=== PATIENT | female | born 1980 | race Caucasian/White ===

== ENCOUNTER 2017-01-21 22:18 | Emergency (ER) | payer MEDICAID ==
[~2017-01-21] VITALS: Ht 165.1 cm; Wt 83.9 kg
[~2017-01-21 22:18] MED LIST: ACHD5005 PO; AZIT250T PO; BACL10TA PO; CYCL10TA9; CYCL10TA9 PO; DIAZ10TA; HYDR-3720 PO; HYDR1TAB PO; IBP800T; IBP800T PO; IBUP-1780 PO; IBUP-30 PO; KETO-22 PO; METH4TAB PO; NAPR-243 PO; NITR-65 PO; OXYC-12 PO; PHEN37.555 PO; PRD10T PO; PRD20T PO; PROM25TA14 PO; SENN-84 PO; TRAM-42 PO; TRAM50TA2 PO; TRM50T PO
[2017-01-21 23:00] LABS: BILIRUBIN,URINE NEGATIVE (NEGATIVE); KETONES,URINE NEGATIVE (NEGATIVE); LEUKOCYTE ESTERASE ,URINE NEGATIVE (NEGATIVE); NITRITE,URINE NEGATIVE (NEGATIVE); PH,URINE 7 (5-9); PROTEIN,URINE NEGATIVE (NEGATIVE); UROBILINOGEN,URINE NORMAL (NORMAL)
--- NOTE | 2017-01-21 23:14 | ED Back Pain ---
General Chief Complaint: General Problems/Pain Stated Complaint: NECK PAIN BACK PAIN Nursing Triage Note: Pt. advises she has been experiencing back and neck pain since 729 today that has become progressively worse. She advises that she has not taken any medication for the pain as the "over the counter stuff" doesn't help her pain. Nursing Sepsis Screen: No Definite Risk Source of Information: Patient Exam Limitations: No Limitations History of Present Illness Time Seen by Provider: 23:14 Location: Coccyx, C-Spine, Lumbar Spine, Paraspinous Muscles, T-Spine Timing/Duration: 12-24 Hours (729 today) Pain/Injury Location: Back, Neck Radiation: Other (denies radiation) Method of Injury: Unknown Modifying Factors: Improves With Immobilization, Worse With Movement Associated Symptoms: muscle spasms, No fever, No weakness, No numbness in legs/ feet, No tingling in legs/feet, No sensory/motor loss, lower back pain, No loss of bladder control, No loss of bowel control Allergies and Home Medications Allergies Coded Allergies: Penicillins (Verified Allergy, Unknown, 03/01/07) hydromorphone HCl (Unverified Allergy, Unknown, 02/16/16) ondansetron HCl (Unverified Allergy, Unknown, 02/16/16) fentanyl (Unverified Adverse Reaction, Severe, anaphylaxis, 04/26/16) ibuprofen (Verified Adverse Reaction, Unknown, 06/06/16) can't take due to stomach problems Home Medications Cyclobenzaprine HCl 10 Mg Tablet, 10 MG PO Q8H, #15 Prescribed by: DIMITRIS RASHEED on 06/06/161944 Cyclobenzaprine HCl 10 Mg Tablet, 10 MG PO Q8H PRN for SPASMS, #14 Ref 0 Prescribed by: BAN THOMPSON on 01/21/172345 Nitrofurantoin Monohyd/M-Cryst 100 Mg Capsule, 100 MG PO BID, #20 Prescribed by: DIMITRIS RASHEED on 06/06/161944 Prednisone 10 Mg Tab, 40 MG PO DAILY, #12 Prescribed by: DIMITRIS RASHEED on 06/06/161944 Prednisone 20 Mg Tab, 40 MG PO DAILY, #10 Ref 0 Prescribed by: BAN THOMPSON on 01/21/172345 Tramadol HCl 50 Mg Tablet, 50 MG PO Q4H, #20 Prescribed by: DIMITRIS RASHEED on 06/06/161944 Tramadol HCl/Acetaminophen 1 Each Tablet, 1 EACH PO Q4H PRN for pain, #20 Ref 0 Prescribed by: BAN THOMPSON on 01/21/17 2346 Constitutional: No chills, No fever, No malaise Respiratory: no symptoms reported Cardiovascular: no symptoms reported Gastrointestinal: No abdominal pain, No diarrhea, No nausea, No vomiting Genitourinary: No decreased output, No dysuria, No frequency, No hematuria, No pain Musculoskeletal: back pain, No joint pain, muscle pain, muscle stiffness, neck pain Skin: no symptoms reported Psychiatric/Neurological: Denies Headache, Denies Numbness, Denies Paresthesia , Denies Tingling, Denies Weakness All Other Systems Reviewed Negative Unless Noted: Yes (Negative excepted noted.) Past Djclnrt-Berfnr-Vexnhm Hx Patient Social History Alcohol Use: Denies Use Recreational Drug Use: No Type Used: Cigarettes Recent Foreign Travel: No Contact w/Someone Who Travel: No Recent Infectious Disease Expo: No Recent Hopitalizations: No Seasonal Allergies Seasonal Allergies: No Surgeries HX Surgeries: Yes (BREAST , URETHRAL DILATION, RENAL BIOPSY; EGD/COLONOSCOPY- COLON POLYPECTOMY) Surgeries: Bladder Surgery, Breast, Gallbladder, Tubal Ligation Respiratory Hx Respiratory Disorders: No Cardiovascular Hx Cardiac Disorders: No Neurological Hx Neurological Disorders: No Reproductive System Hx 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 Genitourinary Hx Genitourinary Disorders: Yes (DIALATED URETHRA; RENAL STONES NOTED ON CT) Genitourinary Disorders: Kidney Stones Gastrointestinal Hx Gastrointestinal Disorders: Yes (EGD/COLONOSCOPY) Gastrointestinal Disorders: Polyps Musculoskeletal Hx Musculoskeletal Disorders: Yes (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) Musculoskeletal Disorders: Fibromyalgia, Chronic Back Pain Endocrine Hx Endocrine Disorders: No HEENT HX ENT Disorders: No Cancer Hx Cancer: No Psychosocial Hx Psychiatric Problems: No Integumentary HX Skin/Integumentary Disorder: No Blood Transfusions Hx Blood Disorders: No Reviewed Nursing Assessment Reviewed/Agree w Nursing PMH: Yes Family Medical History Significant Family History: No Pertinent Family Hx Physical Exam Vital Signs Vital Sign - Last 12Hours 01/21/17 22:35 Temp 98.6 Pulse 70 Resp 14 B/P (MAP) 139/79 Pulse Ox 98 O2 Delivery Room Air Capillary Refill : Less Than 3 Seconds Progress/Results/Core Measures Results/Orders Lab Results Laboratory Tests Test 01/21/17 22:33 Range/Units Urine Color YELLOW Urine Clarity CLEAR Urine pH 7 5-9 Urine Specific [place] 1.010 L 1.016-1.022 Urine Protein NEGATIVE NEGATIVE Urine Glucose (UA) NEGATIVE NEGATIVE Urine Ketones NEGATIVE NEGATIVE Urine Nitrite NEGATIVE NEGATIVE Urine Bilirubin NEGATIVE NEGATIVE Urine Urobilinogen NORMAL NORMAL MG/DL Urine Leukocyte Esterase NEGATIVE NEGATIVE Urine RBC (Auto) NEGATIVE NEGATIVE Urine RBC NONE /HPF Urine WBC NONE /HPF Urine Squamous Epithelial Cells 5-10 /HPF Urine Crystals NONE /LPF Urine Bacteria TRACE /HPF Urine Casts NONE /LPF Urine Mucus NEGATIVE /LPF Urine Culture Indicated NO My Orders Orders - BAN THOMPSON Orphenadrine Injection (Norflex Injectio (01/21/17 23:38) Dexamethasone Pf Injection (Decadron Pf (01/21/17 23:38) Promethazine Tablet (Phenergan Tablet) (01/21/17 23:45) Ketorolac Injection (Toradol Injection) (01/21/17 23:38) Vital Signs/I&O Vital Sign - Last 12Hours 01/21/17 01/22/17 22:35 00:15 Temp 98.6 Pulse 70 68 Resp 14 14 B/P (MAP) 139/79 Pulse Ox 98 98 O2 Delivery Room Air Blood Pressure Mean: 99 Departure Communication Progress Notes Patient seen and evaluated. Patient reports improvement in symptoms with medications given in the emergency department. Discharge to home. Patient ambulated from the emergency department without difficulty. Impression Impression: Primary Impression: acute exacerbation of chronic back pain Additional Impression: acute exacerbation of chronic neck pain Disposition: 01 HOME, SELF-CARE Condition: Improved Departure-Patient Inst. Decision time for Depature: 23:44 Referrals: KENTRELL MARTINEZ BRIAN J MD NO,LOCAL PHYSICIAN (PCP) Primary Care Physician Patient Instructions: Chronic Pain (DC) Add. Discharge Instructions: All discharge instructions reviewed with patient and/or family. Voiced understanding. Medications as instructed. Tylenol 650 mg by mouth every 6 hours as needed for pain. Ice pack or heating pads as needed for pain. Lifting , pushing, pulling, twisting, bending, climbing 7 days. Follow-up with Dr. Bustamante or Dr. Martinez for recheck and possible need of MRI as an outpatient. Return to the emergency department for worsened pain, numbness, weakness, bowel incontinence, bladder incontinence, or any other concerns. Scripts Cyclobenzaprine HCl (Cyclobenzaprine HCl) 10 Mg Tablet 10 MG PO Q8H Y for SPASMS, #14 TAB 0 Refills Prov: BAN THOMPSON 01/21/17 Tramadol HCl/Acetaminophen (Tramadol-Acetaminophn 37.5-325) 1 Each Tablet 1 EACH PO Q4H Y for pain, #20 TAB 0 Refills Prov: BAN THOMPSON 01/21/17 Prednisone (Prednisone) 20 Mg Tab 40 MG PO DAILY, #10 TAB 0 Refills Prov: BAN THOMPSON 01/21/17 Work/School Note: Local Medical Staff Listing BAN THOMPSON January 21, 2017 23:14
[2017-01-21] MEDS ORDERED: DEXAMETHASONE PF 10 MG/ML (DECADRON) VIAL IM STA (23:38)
[2017-01-21] MEDS ORDERED: ORPHENADRINE 60 MG/2 ML (NORFLEX) AMP IM STA (23:38)
[2017-01-21] MEDS ORDERED: KETOROLAC 60 MG/2 ML VIAL IM STA (23:38)
[2017-01-21] MEDS ORDERED: PROMETHAZINE 25 MG (PHENERGAN) TAB PO ONE (23:45)
[2017-01-21] MEDS ORDERED: CYCL10TA9 PO (23:46)
[2017-01-21] MEDS ORDERED: PRD20T PO (23:46)
[2017-01-21] MEDS ORDERED: TRAM1TAB7 PO (23:46)
[2017-01-22 00:15] VITALS: BP 128/85
== END 2017-01-22 00:10 | disposition home or self-care (01) ==
LOC: EDUNIT# 22:18 → ER 22:21
DX: M54.5 Low back pain (principal); M54.2 Cervicalgia; G89.29 Other chronic pain
CPT/HCPCS: 81000; 96372; 99282

== ENCOUNTER 2017-01-23 12:45 | Emergency (ER) | payer MEDICAID ==
[~2017-01-23] VITALS: Ht 162.6 cm; Wt 95.3 kg
[~2017-01-23 12:45] MED LIST changes: +TRAM1TAB7 PO
--- NOTE | 2017-01-23 14:52 | Diagnostic Imaging Report ---
INDICATION: Extreme pain to the back of the neck since last night when trying to eat or drink . No recent trauma. Chronic history of back and neck pain Comparison study: MRI of the cervical spine from 2014 and plain films from 2013. FINDINGS: AP odontoid and lateral views of the cervical spine demonstrates increasing disc space narrowing and osteophytes C6-7. No fracture or subluxation is present. IMPRESSION: Increasing degenerative disc changes at C6-7. Dictated by: Dictated on workstation # [id number]
--- NOTE | 2017-01-23 15:04 | ED Neck-Back Pain/Injury ---
General Chief Complaint: Head/Cervical Problems Stated Complaint: NECK PAIN Nursing Triage Note: AMB TO REPORTS WOKE UP SUNDAY WITH NECK PAIN NO INJURY WAS SEEN IN ED ON SUNDAY RX FOR PAIN,MUSCLE REXLANT DID NOT GET THEM FILLED TO YESTERDAY AFTERNOON. MEDS NOT HELPING. Nursing Sepsis Screen: No Definite Risk History of Present Illness Time Seen by Provider: 14:00 Initial Comments Evaluation for continued, and worsening cervical spine pain. The patient most notably states that she is losing motion in her cervical spine since evaluation 2 days ago. She took the cyclobenzaprine, culture sent, and the prednisone at 0530, today. She is declining request for additional pain medicine at this time , she would like to have x-rays of the cervical spine. Location: C-Spine Timing/Duration: 2-3 Days Severity: Severe Pain/Injury Location: Neck Method of Injury: Unknown Modifying Factors: Improves With Immobilization, Improves With Rest Associated Symptoms: muscle spasms, No weakness, No sensory/motor loss, No lower back pain, No loss of bladder control, No loss of bowel control Allergies and Home Medications Allergies Coded Allergies: Penicillins (Verified Allergy, Unknown, 03/01/07) hydromorphone HCl (Unverified Allergy, Unknown, 02/16/16) ondansetron HCl (Unverified Allergy, Unknown, 02/16/16) fentanyl (Unverified Adverse Reaction, Severe, anaphylaxis, 04/26/16) ibuprofen (Verified Adverse Reaction, Unknown, 06/06/16) can't take due to stomach problems Home Medications Cyclobenzaprine HCl 10 Mg Tablet, 10 MG PO Q8H, #15 Prescribed by: DIMITRIS RASHEED on 06/06/161944 Cyclobenzaprine HCl 10 Mg Tablet, 10 MG PO Q8H PRN for SPASMS, #14 Ref 0 Prescribed by: BAN THOMPSON on 01/21/17 234 Nitrofurantoin Monohyd/M-Cryst 100 Mg Capsule, 100 MG PO BID, #20 Prescribed by: DIMITRIS RASHEED on 06/06/161944 Prednisone 10 Mg Tab, 40 MG PO DAILY, #12 Prescribed by: DIMITRIS RASHEED on 06/06/161944 Prednisone 20 Mg Tab, 40 MG PO DAILY, #10 Ref 0 Prescribed by: BAN THOMPSON on 01/21/172345 Tramadol HCl 50 Mg Tablet, 50 MG PO Q4H, #20 Prescribed by: DIMITRIS RASHEED on 06/06/16 194 Tramadol HCl/Acetaminophen 1 Each Tablet, 1 EACH PO Q4H PRN for pain, #20 Ref 0 Prescribed by: BAN THOMPSON on 01/21/17 2346 Constitutional: no symptoms reported, see HPI EENTM: no symptoms reported, see HPI Respiratory: no symptoms reported, see HPI Cardiovascular: no symptoms reported, see HPI Gastrointestinal: no symptoms reported, see HPI Genitourinary: no symptoms reported, see HPI Musculoskeletal: see HPI, back pain, neck pain Skin: no symptoms reported, see HPI Psychiatric/Neurological: No Symptoms Reported, See HPI All Other Systems Reviewed Negative Unless Noted: Yes Past Yqvoxck-Uufvsk-Aojxpp Hx Patient Social History Alcohol Use: Occasionally Uses Recreational Drug Use: No Smoking Status: Current Everyday Smoker Type Used: Cigarettes Recent Foreign Travel: No Contact w/Someone Who Travel: No Recent Infectious Disease Expo: No Recent Hopitalizations: No Seasonal Allergies Seasonal Allergies: No Surgeries HX Surgeries: Yes (BREAST , URETHRAL DILATION, RENAL BIOPSY; EGD/COLONOSCOPY- COLON POLYPECTOMY) Surgeries: Bladder Surgery, Breast, Gallbladder, Tubal Ligation Respiratory Hx Respiratory Disorders: No Cardiovascular Hx Cardiac Disorders: No Neurological Hx Neurological Disorders: No Reproductive System Hx Reproductive Disorders: 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 Genitourinary Hx Genitourinary Disorders: Yes (DIALATED URETHRA; RENAL STONES NOTED ON CT) Genitourinary Disorders: Kidney Stones Gastrointestinal Hx Gastrointestinal Disorders: Yes (EGD/COLONOSCOPY) Gastrointestinal Disorders: Polyps Musculoskeletal Hx Musculoskeletal Disorders: Yes (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) Musculoskeletal Disorders: Fibromyalgia, Chronic Back Pain Endocrine Hx Endocrine Disorders: No HEENT HX ENT Disorders: No Cancer Hx Cancer: No Psychosocial Hx Psychiatric Problems: No Integumentary HX Skin/Integumentary Disorder: No Blood Transfusions Hx Blood Disorders: No Reviewed Nursing Assessment Reviewed/Agree w Nursing PMH: Yes Family Medical History Significant Family History: No Pertinent Family Hx Physical Exam Vital Signs Vital Sign - Last 12Hours 01/23/17 12:50 Temp 98.6 Pulse 67 Resp 18 B/P (MAP) 126/72 Pulse Ox 99 O2 Delivery Room Air Capillary Refill : Less Than 3 Seconds General Appearance: No Apparent Distress HEENT: PERRL/EOMI Neck: Normal Inspection, Limited Range of Motion (significant, secondary to pain.), Other (tenderness throughout the cervical spine, and trapezius muscles) Cardiovascular: Regular Rate, Rhythm, No JVD, Normal Peripheral Pulses Respiratory: Chest Non Tender, Lungs Clear Extremity: Normal Capillary Refill, Normal Inspection, Normal Range of Motion ( bilateral upper extremities and lower extremities), Other ( significant muscle spasms noted, trapezius. Power V/V C5 to T1. ) Neurologic/Psychiatric: Alert, Oriented x3, No Motor/Sensory Deficits, Normal Mood/Affect, vocational education teacher II-XII Norm as Tested Skin: Normal Color, Warm/Dry Lymphatic: No Adenopathy Progress/Results/Core Measures Results/Orders My Orders Orders - SUNITHA AVILA Cervical Spine 3 Views Or Less (01/23/17 14:13) Oxycodone/Apap 5/325mg Tablet (Percocet (01/23/17 15:11) Prochlorperazine Tablet (Compazine Table (01/23/17 15:11) Vital Signs/I&O Vital Sign - Last 12Hours 01/23/17 12:50 Temp 98.6 Pulse 67 Resp 18 B/P (MAP) 126/72 Pulse Ox 99 O2 Delivery Room Air Blood Pressure Mean: 90 Progress Note : Time: 14:00 Progress Note Initial evaluation completed, the patient declined muscle relaxant or analgesia at this time she requested a having an x-ray of the cervical spine. We'll reevaluate after this assessment completed. 1445 discussed x-ray results with the patient, shows increased degenerative disc disease at C6 7. No other bony abnormalities are noted on the x-rays. Discussed the importance of her following up with a clinical specialist, as this was discussed at her visit here on January 21. She did agree to trying Percocet 5/ 325 and Compazine 10 mg for her current pain. Will reevaluate patient after these have been given. 1550 patient reports minimal improvement in her symptoms after the pain medicine. She would like to be discharged home and will follow-up with a clinical specialist. Diagnostic Imaging Diagonstic Imaging: Xray Plain Films/CT/US/NM/MRI: c-spine Comments NAME: DIMITRIS CLEMONS [facility] REC#: [id number] PT STATUS: REG ER : 1980 PHYSICIAN: SUNITHA AVILA ADMIT DATE: 01/23/17/ER Draft Date of Exam:01/23/17 CERVICAL SPINE 3 VIEWS OR LESS INDICATION: Extreme pain to the back of the neck since last night when trying to eat or drink . No recent trauma. Chronic history of back and neck pain Comparison study: MRI of the cervical spine from 2013 and plain films from 2013. FINDINGS: AP odontoid and lateral views of the cervical spine demonstrates increasing disc space narrowing and osteophytes C6-7. No fracture or subluxation is present. IMPRESSION: Increasing degenerative disc changes at C6-7. Dictated on workstation # [id number] Dict: 01/23/17 1447 Trans: 01/23/17 1451 [facility] [id number] Interpreted by: JUSTINE VINSON MD Electronically signed by: Departure Impression Impression: Primary Impression: Degenerative disk disease Qualified Codes: M50.323 - Other cervical disc degeneration at C6-C7 level Additional Impression: Trapezius muscle spasm Disposition: 01 HOME, SELF-CARE Condition: Stable Departure-Patient Inst. Decision time for Depature: 15:15 Referrals: NO,LOCAL PHYSICIAN (PCP/Family) Primary Care Physician Patient Instructions: Chronic Neck Pain (DC), Cervical Muscle Strain (DC) Add. Discharge Instructions: 1. Warm moist heat to the neck every 1-2 hours. 2. Continue previously prescribed pain medicine and prednisone. 3. Schedule spine evaluation as recommended at the January 21 emergency department visit 4. Return to emergency department symptoms worsen or new problems. 5. Establish care with primary care provider, see attached list of local physicians. All discharge instructions reviewed with patient and/or family. Voiced understanding. Work/School Note: Local Medical Staff Listing SUNITHA AVILA January 23, 2017 15:04
[2017-01-23] MEDS ORDERED: oxyCODONE/APAP 5/325MG (PERCOCET 5) TABLET PO STA (15:11)
[2017-01-23] MEDS ORDERED: PROCHLORPERAZINE 10 MG TAB (COMPAZINE) PO STA (15:11)
[2017-01-23 15:59] VITALS: BP 126/72
== END 2017-01-23 15:58 | disposition home or self-care (01) ==
LOC: EDUNIT# 12:45 → ER 12:48
DX: M50.323 Other cervical disc degeneration at C6-C7 level (principal); F17.210 Nicotine dependence, cigarettes, uncomplicated
CPT/HCPCS: 72040; 99282

== ENCOUNTER → 2017-02-06 | Outpatient (CLI) | payer MEDICAID ==
--- NOTE | 2017-02-06 15:33 | Diagnostic Imaging Report ---
PROCEDURE: MR imaging cervical spine without contrast. TECHNIQUE: Multiplanar, multisequence MR imaging of the cervical spine was performed without contrast. INDICATION: Neck pain. FINDINGS: There is a straightening of the cervical lordotic curvature. The alignment of the posterior spinal line is satisfactory. The vertebral body heights are preserved. Disc heights are also preserved. There is mild disc desiccation at all levels. The bone marrow demonstrates no significant signal abnormality. The spinal cord has normal caliber, contour, and signal. The foramen magnum and upper cervical canal are widely patent. C2-C3: No disc herniation, no spinal canal, or foraminal stenosis. C3-C4: No disc herniation, no spinal canal, or foraminal stenosis. C4-C5: No disc herniation, no spinal canal, or foraminal stenosis. C5-C6: No disc herniation, no spinal canal, or foraminal stenosis. C6-C7: There is a prominent disc spur complex. There is no significant spinal canal stenosis. There is bilateral moderate foraminal stenosis from uncovertebral and facet joint hypertrophy. C7-T1: No disc herniation, no spinal canal or foraminal stenosis. IMPRESSION: Degenerative changes around C6-C7 level. There is no spinal canal stenosis or cord compression at any level. There is bilateral moderate foraminal stenosis at C6-C7. Dictated by: Dictated on workstation # [id number]
== END ==
LOC: RAD 13:58
PROVIDERS: ATTEND Nurse Practitioner Family
DX: M48.02 Spinal stenosis, cervical region (principal); M47.812 Spondylosis without myelopathy or radiculopathy, cervical region
CPT/HCPCS: 72141

== ENCOUNTER 2017-06-02 09:22 | Emergency (ER) | payer SELFPAY ==
[~2017-06-02] VITALS: Ht 165.1 cm; Wt 90.7 kg
[2017-06-02] MEDS ORDERED: morphine INJ 10 MG/ML 1ML (SYR OR VIAL) IM STA (09:32)
[2017-06-02] MEDS ORDERED: PROMETHAZINE 25 MG (PHENERGAN) TAB PO ONE (09:45)
--- NOTE | 2017-06-02 10:04 | ED Lower Extremity ---
General Chief Complaint: Lower Extremity Stated Complaint: L ANKLE POSS BREAK Nursing Triage Note: PT REPORTS TWISTING L ANKLE LAST NOC. SWELLING NOTED TO AFFECTED AREA. Nursing Sepsis Screen: No Definite Risk Source: patient Exam Limitations: no limitations History of Present Illness Time seen by provider: 09:30 Initial Comments Here with report of right ankle pain since last night. Was working in the garage when she stepped down and twisted her ankle significantly on the left. Complains of pain all around the ankle and pain radiating up to her knee now. Denies other injury. Note swelling to the lateral aspect of the ankle. Better with elevation and worse with movement. Onset: yesterday Severity: moderate Pain/Injury Location: left foot, left ankle Method of Injury: twisted Modifying Factors: Improves With Immobilization, Worse With Movement Allergies and Home Medications Allergies Coded Allergies: Penicillins (Verified Allergy, Unknown, 03/01/07) hydromorphone HCl (Unverified Allergy, Unknown, 02/16/16) ondansetron HCl (Unverified Allergy, Unknown, 02/16/16) fentanyl (Unverified Adverse Reaction, Severe, anaphylaxis, 04/26/16) ibuprofen (Verified Adverse Reaction, Unknown, 06/06/16) can't take due to stomach problems Home Medications Cyclobenzaprine HCl 10 Mg Tablet, 10 MG PO Q8H, #15 Prescribed by: DIMITRIS RASHEED on 06/06/161944 Cyclobenzaprine HCl 10 Mg Tablet, 10 MG PO Q8H PRN for SPASMS, #14 Ref 0 Prescribed by: BAN THOMSPON on 01/21/172345 Nitrofurantoin Monohyd/M-Cryst 100 Mg Capsule, 100 MG PO BID, #20 Prescribed by: DIMITRIS RASHEED on 06/06/161944 Prednisone 10 Mg Tab, 40 MG PO DAILY, #12 Prescribed by: DIMITRIS RASHEED on 06/06/161944 Prednisone 20 Mg Tab, 40 MG PO DAILY, #10 Ref 0 Prescribed by: BAN THOMPSON on 01/21/172345 Tramadol HCl 50 Mg Tablet, 50 MG PO Q4H, #20 Prescribed by: DIMITRIS RASHEED on 06/06/161944 Tramadol HCl/Acetaminophen 1 Each Tablet, 1 EACH PO Q4H PRN for pain, #20 Ref 0 Prescribed by: BAN THOMPSON on 01/21/17 6710 Constitutional: see HPI, No chills, No fever Respiratory: no symptoms reported Cardiovascular: no symptoms reported Musculoskeletal: see HPI, joint pain, joint swelling, muscle pain Skin: change in color, No lesions Psychiatric/Neurological: No Symptoms Reported Past Eefhplw-Mdlfjl-Bqhhpc Hx Patient Social History Alcohol Use: Occasionally Uses Recreational Drug Use: No Smoking Status: Current Everyday Smoker Type Used: Cigarettes 2nd Hand Smoke Exposure: Yes Recent Foreign Travel: No Contact w/Someone Who Travel: No Recent Infectious Disease Expo: No Recent Hopitalizations: No Physical Abuse: No Sexual Abuse: No Seasonal Allergies Seasonal Allergies: No Surgeries History of Surgeries: Yes (BREAST , URETHRAL DILATION, RENAL BIOPSY; EGD/ COLONOSCOPY-COLON POLYPECTOMY) Surgeries: Bladder Surgery, Breast, Gallbladder, Tubal Ligation Respiratory History of Respiratory Disorde: No Cardiovascular History of Cardiac Disorders: No Neurological History of Neurological Disord: No Reproductive System Hx Reproductive Disorders: No [employer] History: Tubal Ligation Genitourinary Genitourinary Disorders: Kidney Stones Gastrointestinal History of Gastrointestinal Di: Yes (EGD/COLONOSCOPY) Gastrointestinal Disorders: Polyps Musculoskeletal History of Musculoskeletal Dis: Yes (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) Musculoskeletal Disorders: Fibromyalgia, Chronic Back Pain Endocrine History of Endocrine Disorders: No Cancer History of Cancer: No Psychosocial History of Psychiatric Problem: No Suicide Risk Score: 0 Integumentary History of Skin or Integumenta: No Blood Transfusions History of Blood Disorders: No Reviewed Nursing Assessment Reviewed/Agree w Nursing PMH: Yes Family Medical History Significant Family History: No Pertinent Family Hx Physical Exam Vital Signs Vital Sign - Last 12Hours 06/02/17 09:25 Temp 97.3 Pulse 82 Resp 18 B/P (MAP) 150/88 Pulse Ox 97 O2 Delivery Room Air Capillary Refill : Less Than 3 Seconds General Appearance: WD/WN, no apparent distress Cardiovascular: regular rate, rhythm, no murmur Respiratory: lungs clear, normal breath sounds Ankles: left ankle limited range of motion, left ankle pain, left ankle soft tissue tenderness, left ankle swelling, left ankle other (tender throughout the ankle with swelling noted to the lateral aspect. Distal sensation and circulation intact. Complaints of pain from the toes to the knee but mostly centered around the ankle) Neurologic/Psychiatric: oriented x 3 Skin: warm/dry, ecchymosis (ecchymosis left lateral ankle) Progress/Results/Core Measures Results/Orders My Orders Orders - KUN SADLER MD Ankle, Left, 3 Views (06/02/17 09:32) Morphine Injection (Morphine Injection (06/02/17 09:32) Promethazine Tablet (Phenergan Tablet) (06/02/17 09:45) Medications Given in ED Current Medications Medications Dose Ordered Sig/Izabel Route Start Time Stop Time Status Last Admin Dose Admin Promethazine HCl 25 mg ONCE ONCE PO 06/02/17 09:45 06/02/17 09:46 DC 06/02/17 09:48 25 MG Vital Signs/I&O Vital Sign - Last 12Hours 06/02/17 09:25 Temp 97.3 Pulse 82 Resp 18 B/P (MAP) 150/88 Pulse Ox 97 O2 Delivery Room Air Blood Pressure Mean: 108 Progress Note : Progress Note Seen and evaluated. X-ray left ankle. Morphine 8 mg IM and Phenergan 25 mg by mouth as patient was nausea with pain medicines. Monitor patient. 1035: No acute findings on x-ray. Dada wrap and boot applied. Patient has walker for comfort at home. Discharged home with return precautions. Patient verbalize understanding instructions and agreement with plan. Diagnostic Imaging Diagonstic Imaging: Xray Plain Films/CT/US/NM/MRI: ankle Comments VIA [place], [place] NAME: DIMITRIS CLEMONS [facility] REC#: [id number] PT STATUS: REG ER : 1980 PHYSICIAN: KUN SADLER MD ADMIT DATE: 06/02/17/ER Draft Date of Exam:06/02/17 ANKLE, LEFT, 3 VIEWS ANKLE, LEFT, 3 VIEWS COMPARISON: None available. INDICATION: Swelling and bruising of the ankle after twisting injury last night. TECHNIQUE: Non-weight bearing AP, oblique, and lateral views. FINDINGS: No fracture or traumatic malalignment. No osteochondral lesion of the talar dome. Normal variant accessory ossicle of the os perineum. Prominent lateral tubercle of the posterior process of the talus (Stieda's process). Mild soft tissue swelling about the lateral aspect of the ankle. IMPRESSION: 1. No acute fracture or traumatic malalignment. Dictated on workstation # [id number] Dict: 06/02/17 1016 Trans: 06/02/17 1022 [facility] [id number] Interpreted by: JOSS AIKEN MD Electronically signed by: Reviewed: Reviewed by Me Departure Impression Impression: Primary Impression: Left ankle strain Qualified Codes: S96.912A - Strain of unspecified muscle and tendon at ankle and foot level, left foot, initial encounter Disposition: HOME, SELF-CARE Condition: Improved Departure-Patient Inst. Decision time for Depature: 10:39 Referrals: [facility] (PCP/Family) Primary Care Physician Patient Instructions: Active Range of Motion Exercises, Knees and Ankles, Ankle Sprain (DC) Add. Discharge Instructions: All discharge instructions reviewed with patient and/or family. Voiced understanding. Use Dada wrap and boot as needed for comfort over the next several days to week. Follow up with your doctor for recheck and further evaluation if not improving. You should gently move the ankle daily for range of motion to decrease swelling and improve healing. He may take ibuprofen or Tylenol as needed for pain. Ice packs to affected area as needed for swelling especially over the next 2 days. Return for worse pain, swelling, weakness or other concerns as needed. KUN SADLER MD Jun 02, 2017 10:04
--- NOTE | 2017-06-02 10:22 | Diagnostic Imaging Report ---
ANKLE, LEFT, 3 VIEWS COMPARISON: None available. INDICATION: Swelling and bruising of the ankle after twisting injury last night. TECHNIQUE: Non-weight bearing AP, oblique, and lateral views. FINDINGS: No fracture or traumatic malalignment. No osteochondral lesion of the talar dome. Normal variant accessory ossicle of the os perineum. Prominent lateral tubercle of the posterior process of the talus (Stieda's process). Mild soft tissue swelling about the lateral aspect of the ankle. IMPRESSION: 1. No acute fracture or traumatic malalignment. Dictated by: Dictated on workstation # [id number]
[2017-06-02 10:40] VITALS: BP 150/88
== END 2017-06-02 10:40 | disposition home or self-care (01) ==
LOC: EDUNIT# 09:22 → ER 09:23
DX: S96.912A Strain of unspecified muscle and tendon at ankle and foot level, left foot, initial encounter (principal); F17.210 Nicotine dependence, cigarettes, uncomplicated; Z98.51 Tubal ligation status; Z86.010 Personal history of colon polyps; Z87.440 Personal history of urinary (tract) infections; X50.0XXA Overexertion from strenuous movement or load, initial encounter; Y92.59 Other trade areas as the place of occurrence of the external cause
CPT/HCPCS: 73610; 96372; 99284

== ENCOUNTER 2017-10-19 23:02 | Emergency (ER) | payer MEDICAID ==
[~2017-10-19] VITALS: Ht 162.6 cm; Wt 99.8 kg
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
--- OUTSIDE RECORDS SUMMARY | 2017-10-19 23:08 | XMS REPORT | Continuity of Care Document ---
Author Author [facility] Organization [facility] Address Unknown Phone Unavailable Allergies Active Description Code Type Severity Reaction Onset Reported/Identified Relationship to Patient Clinical Status Yes Penicillins [id number] Drug Allergy Unknown N/A 03/01/2007 Yes hydromorphone HCl [id number] Drug Allergy Unknown N/A 02/16/2016 Yes ondansetron HCl [id number] Drug Allergy Unknown N/A 02/16/2016 Yes fentanyl [id number] Drug Allergy Severe anaphylaxis 04/26/2016 Yes ibuprofen [id number] Drug Allergy Unknown N/A 06/06/2016 Medications There is no data. Problems Date Dx Coded Attending Type Code Diagnosis Diagnosed By 12/21/2010 Ot 789.06 ABDOMINAL PAIN, EPIGASTRIC 02/14/2011 Ot 723.1 CERVICALGIA 05/19/2012 Ot 723.1 CERVICALGIA 05/21/2012 Ot 723.1 CERVICALGIA 05/21/2012 Ot 723.4 BRACHIAL NEURITIS NOS 11/07/2012 Ot 847.0 SPRAIN OF NECK 11/07/2012 Ot 959.09 INJURY OF FACE AND NECK 11/07/2012 Ot E000.8 OTHER EXTERNAL CAUSE STATUS 11/07/2012 Ot E849.0 ACCIDENT IN HOME 11/07/2012 Ot E928.9 ACCIDENT NOS 04/13/2013 BAN DAILEY Ot 786.50 CHEST PAIN NOS 04/13/2013 BAN DAILEY Ot 786.52 PAINFUL RESPIRATION 07/31/2014 TANIA DANIELS MD Ot 721.3 07/31/2014 TANIA DANIELS MD Ot 723.0 08/21/2014 Ot 722.52 08/21/2014 Ot 959.19 08/21/2014 Ot E819.9 08/21/2014 Ot 288.60 08/21/2014 Ot 722.93 08/21/2014 Ot 723.1 08/21/2014 TANIA DANIELS MD Ot 721.3 08/21/2014 TANIA DANIELS MD Ot 723.0 08/21/2014 Ot 722.52 08/21/2014 Ot 959.19 08/21/2014 Ot E819.9 08/21/2014 Ot 288.60 08/21/2014 Ot 722.93 08/21/2014 Ot 723.1 08/21/2014 TANIA DANIELS MD Ot 721.3 08/21/2014 TANIA DANIELS MD Ot 723.0 08/24/2014 Ot 722.52 08/24/2014 Ot 959.19 08/24/2014 Ot E819.9 08/24/2014 Ot 288.60 08/24/2014 Ot 722.93 08/24/2014 Ot 723.1 08/24/2014 TANIA DANIELS MD Ot 721.3 08/24/2014 TANIA DANIELS MD Ot 723.0 08/24/2014 TANIA DANIELS MD Ot 729.5 08/24/2014 DIMITRIS RASHEED DO Ot 719.47 JOINT PAIN-ANKLE 08/24/2014 DIMITRIS RASHEED DO Ot 729.5 PAIN IN LIMB 08/31/2014 FRANCES DAO, TANIA Wiggins Ot 729.5 09/08/2014 TANIA DANIELS MD Ot 729.5 09/14/2014 TANIA DANIELS MD Ot 729.5 02/02/2015 VIKTORIYA DAO, KUN Haq Ot 786.50 CHEST PAIN NOS 02/02/2015 KUN SADLER MD Ot 789.06 ABDOMINAL PAIN, EPIGASTRIC 11/12/2015 Ot 722.93 11/12/2015 Ot 723.1 11/12/2015 TANIA DANIELS MD Ot 721.3 11/12/2015 TANIA DANIELS MD Ot 723.0 11/12/2015 TANIA DANIELS MD Ot 729.5 11/12/2015 TANIA DANIELS MD Ot 729.5 11/16/2015 TANIA DANIELS MD Ot M54.5 11/26/2015 TANIA DANIELS MD Ot M54.5 02/16/2016 Ot 722.93 DISC DIS NEC /NOS-LUMBAR 02/16/2016 Ot 723.1 CERVICALGIA 02/16/2016 TANIA DANIELS MD Ot 721.3 LUMBOSACRAL SPONDYLOSIS 02/16/2016 TANIA DANIELS MD Ot 723.0 CERVICAL SPINAL STENOSIS 02/16/2016 FRANCES DAO, TANIA Wiggins Ot 729.5 PAIN IN LIMB 02/16/2016 FRANCES DAO, TANIA Wiggins Ot 729.5 PAIN IN LIMB 02/16/2016 FRANCES DAO, TANIA Wiggins Ot M54.5 LOW BACK PAIN 02/16/2016 Ot 722.93 DISC DIS NEC /NOS-LUMBAR 02/16/2016 Ot 723.1 CERVICALGIA 02/16/2016 FRANCES DAO, TANIA Wiggins Ot 721.3 LUMBOSACRAL SPONDYLOSIS 02/16/2016 FRANCES DAO, TANIA Wiggins Ot 723.0 CERVICAL SPINAL STENOSIS 02/16/2016 FRANCES DAO, TANIA Wiggins Ot 729.5 PAIN IN LIMB 02/16/2016 TANIA DANIELS MD Ot 729.5 PAIN IN LIMB 02/16/2016 TANIA DANIELS MD Ot M54.5 LOW BACK PAIN 02/17/2016 TANIA DANIELS MD Ot R10.13 EPIGASTRIC PAIN 03/03/2016 TANIA DANIELS MD Ot R10.13 EPIGASTRIC PAIN 03/29/2016 LUIS A DUFFY MD Ot R10.13 EPIGASTRIC PAIN 03/29/2016 LUIS A DUFFY MD Ot Z01.818 ENCOUNTER FOR OTHER PREPROCEDURAL EXAMIN 03/30/2016 LUIS A DUFFY MD Ot R10.13 EPIGASTRIC PAIN 03/30/2016 LUIS A DUFFY MD Ot Z01.818 ENCOUNTER FOR OTHER PREPROCEDURAL EXAMIN 04/03/2016 Ot 722.93 DISC DIS NEC /NOS-LUMBAR 04/03/2016 Ot 723.1 CERVICALGIA 04/03/2016 FRANCES DAO, TANIA Wiggins Ot 721.3 LUMBOSACRAL SPONDYLOSIS 04/03/2016 FRANCES DAO, TANIA Wiggins Ot 723.0 CERVICAL SPINAL STENOSIS 04/03/2016 FRANCES DAO, TANIA Wiggins Ot 729.5 PAIN IN LIMB 04/03/2016 TANIA DANIELS MD Ot 729.5 PAIN IN LIMB 04/03/2016 TANIA DANIELS MD Ot M54.5 LOW BACK PAIN 04/03/2016 TANIA DANIELS MD Ot R10.13 EPIGASTRIC PAIN 04/03/2016 LUIS A DUFFY MD Ot K29.70 GASTRITIS, UNSPECIFIED, WITHOUT BLEEDING 04/03/2016 LUIS A DUFFY MD Ot K44.9 DIAPHRAGMATIC HERNIA WITHOUT OBSTRUCTION 04/03/2016 TATI DAO, LUIS A Roy Ot K63.5 POLYP OF COLON 04/04/2016 TATI DAO, LUIS A Roy Ot K29.70 GASTRITIS, UNSPECIFIED, WITHOUT BLEEDING 04/04/2016 TATI DAO, LUIS A Roy Ot K44.9 DIAPHRAGMATIC HERNIA WITHOUT OBSTRUCTION 04/04/2016 TATI DAO, LUIS A Roy Ot K63.5 POLYP OF COLON 04/26/2016 STEFANIA DO, PAIGE Haq Ot J02.9 ACUTE PHARYNGITIS, UNSPECIFIED 04/26/2016 STEFANIA DO, PAIGE D Ot R50.9 FEVER, UNSPECIFIED 04/26/2016 STEFANIA DO, PAIGE D Ot J02.9 ACUTE PHARYNGITIS, UNSPECIFIED 04/26/2016 STEFANIA DO, PAIGE Haq Ot R50.9 FEVER, UNSPECIFIED 04/27/2016 STEFANIA DO, PAIGE Haq Ot J02.9 ACUTE PHARYNGITIS, UNSPECIFIED 04/27/2016 STEFANIA DO, PAIGE Haq Ot R50.9 FEVER, UNSPECIFIED 06/06/2016 DIMITRIS RASHEED DO Ot F17.210 NICOTINE DEPENDENCE, CIGARETTES, UNCOMPL 06/06/2016 DIMITRIS RASHEED DO Ot M51.36 OTHER INTERVERTEBRAL DISC DEGENERATION, 06/06/2016 DIMITRIS RASHEED DO Ot M54.41 LUMBAGO WITH SCIATICA, RIGHT SIDE 06/06/2016 DIMITRIS RASHEED DO Ot M79.605 PAIN IN LEFT LEG 06/06/2016 DIMITRIS RASHEED DO Ot N20.0 CALCULUS OF KIDNEY 06/06/2016 Ot 722.93 DISC DIS NEC /NOS-LUMBAR 06/06/2016 Ot 723.1 CERVICALGIA 06/06/2016 FRANCES DAO, TANIA Wiggins Ot 721.3 LUMBOSACRAL SPONDYLOSIS 06/06/2016 FRANCES DAO, TANIA Wiggins Ot 723.0 CERVICAL SPINAL STENOSIS 06/06/2016 FRANCES DAO, TANIA Wiggins Ot 729.5 PAIN IN LIMB 06/06/2016 FRANCES DAO, TANIA Wiggins Ot 729.5 PAIN IN LIMB 06/06/2016 FRANCES DAO, TANIA Wiggins Ot M54.5 LOW BACK PAIN 06/06/2016 FRANCES DAO, TANIA Wiggins Ot R10.13 EPIGASTRIC PAIN 06/06/2016 Ot 722.93 DISC DIS NEC /NOS-LUMBAR 06/06/2016 Ot 723.1 CERVICALGIA 06/06/2016 FRANCES DAO, TANIA Wiggins Ot 721.3 LUMBOSACRAL SPONDYLOSIS 06/06/2016 FRANCES DAO, TANIA Wiggins Ot 723.0 CERVICAL SPINAL STENOSIS 06/06/2016 TANIA DANIELS MD Ot 729.5 PAIN IN LIMB 06/06/2016 TANIA DANIELS MD Ot 729.5 PAIN IN LIMB 06/06/2016 TANIA DANIELS MD Ot M54.5 LOW BACK PAIN 06/06/2016 TANIA DANIELS MD Ot R10.13 EPIGASTRIC PAIN 06/07/2016 KATHYA DIMITRIS Ot F17.210 NICOTINE DEPENDENCE, CIGARETTES, UNCOMPL 06/07/2016 KATHYA DIMITRIS Ot M51.36 OTHER INTERVERTEBRAL DISC DEGENERATION, 06/07/2016 DIMITRIS RASHEED DO Ot M54.41 LUMBAGO WITH SCIATICA, RIGHT SIDE 06/07/2016 DIMITRIS RASHEED DO Ot M79.605 PAIN IN LEFT LEG 06/07/2016 DIMITRIS RASHEED DO Ot N20.0 CALCULUS OF KIDNEY 06/12/2016 Ot 722.93 DISC DIS NEC /NOS-LUMBAR 06/12/2016 Ot 723.1 CERVICALGIA 06/12/2016 FRANCES DAO, TANIA Wiggins Ot 721.3 LUMBOSACRAL SPONDYLOSIS 06/12/2016 FRANCES DAO, TANIA Wiggins Ot 723.0 CERVICAL SPINAL STENOSIS 06/12/2016 FRANCES DAO, TANIA Wiggins Ot 729.5 PAIN IN LIMB 06/12/2016 TANIA DANIELS MD Ot 729.5 PAIN IN LIMB 06/12/2016 TANIA DANIELS MD Ot M54.5 LOW BACK PAIN 06/12/2016 TANIA DANIELS MD Ot R10.13 EPIGASTRIC PAIN 06/22/2016 Ot 722.93 DISC DIS NEC /NOS-LUMBAR 06/22/2016 Ot 723.1 CERVICALGIA 06/22/2016 TANIA DANIELS MD Ot 721.3 LUMBOSACRAL SPONDYLOSIS 06/22/2016 TANIA DANIELS MD Ot 723.0 CERVICAL SPINAL STENOSIS 06/22/2016 TANIA DANIELS MD Ot 729.5 PAIN IN LIMB 06/22/2016 TANIA DANIELS MD Ot 729.5 PAIN IN LIMB 06/22/2016 TANIA DANIELS MD Ot M54.5 LOW BACK PAIN 06/22/2016 TANIA DANIELS MD Ot R10.13 EPIGASTRIC PAIN 01/22/2017 BAN DAILEY Ot G89.29 OTHER CHRONIC PAIN 01/22/2017 BAN DAILEY Ot M54.2 CERVICALGIA 01/22/2017 BAN DAILEY Ot M54.5 LOW BACK PAIN 01/23/2017 TANIA DANIELS MD Ot 721.3 LUMBOSACRAL SPONDYLOSIS 01/23/2017 TANIA DANIELS MD Ot 723.0 CERVICAL SPINAL STENOSIS 01/23/2017 TANIA DANIELS MD J Ot 729.5 PAIN IN LIMB 01/23/2017 TANIA DANIELS MD Ot 729.5 PAIN IN LIMB 01/23/2017 TANIA DANIELS MD Ot M54.5 LOW BACK PAIN 01/23/2017 TANIA DANIELS MD Ot R10.13 EPIGASTRIC PAIN 01/23/2017 AUSTIN, SUNITHA TRUCK HOP Ot F17.210 NICOTINE DEPENDENCE, CIGARETTES, UNCOMPL 01/23/2017 AUSTIN, SUNITHA TRUCK HOP Ot M50.323 OTHER CERVICAL DISC DEGENERATION AT C6-C 01/23/2017 AUSTIN, SUNITHA TRUCK HOP Ot M54.2 CERVICALGIA 01/24/2017 AUSTIN, SUNITHA TRUCK HOP Ot F17.210 NICOTINE DEPENDENCE, CIGARETTES, UNCOMPL 01/24/2017 AUSTIN, SUNITHA TRUCK HOP Ot M50.323 OTHER CERVICAL DISC DEGENERATION AT C6-C 01/24/2017 AUSTIN, SUNITHA TRUCK HOP Ot M54.2 CERVICALGIA 01/30/2017 TANIA DANIELS MD Ot 721.3 LUMBOSACRAL SPONDYLOSIS 01/30/2017 TANIA DANIELS MD Ot 723.0 CERVICAL SPINAL STENOSIS 01/30/2017 TANIA DANIELS MD J Ot 729.5 PAIN IN LIMB 01/30/2017 TANIA DANIELS MD J Ot 729.5 PAIN IN LIMB 01/30/2017 TANIA DANIELS MD Ot M54.5 LOW BACK PAIN 01/30/2017 TANIA DANIELS MD Ot R10.13 EPIGASTRIC PAIN 02/01/2017 TANIA DANIELS MD J Ot 721.3 LUMBOSACRAL SPONDYLOSIS 02/01/2017 TANIA DANIELS MD Ot 723.0 CERVICAL SPINAL STENOSIS 02/01/2017 TANIA DANIELS MD Ot 729.5 PAIN IN LIMB 02/01/2017 TANIA DANIELS MD Ot 729.5 PAIN IN LIMB 02/01/2017 TANIA DANIELS MD Ot M54.5 LOW BACK PAIN 02/01/2017 TANIA DANIELS MD Ot R10.13 EPIGASTRIC PAIN 02/06/2017 TANIA DANIELS MD Ot 721.3 LUMBOSACRAL SPONDYLOSIS 02/06/2017 TANIA DANIELS MD Ot 723.0 CERVICAL SPINAL STENOSIS 02/06/2017 TANIA DANIELS MD Ot 729.5 PAIN IN LIMB 02/06/2017 TANIA DANIELS MD Ot 729.5 PAIN IN LIMB 02/06/2017 TANIA DANIELS MD Ot M54.5 LOW BACK PAIN 02/06/2017 TANIA DANIELS MD Ot R10.13 EPIGASTRIC PAIN 02/09/2017 AUTUMN FIELDS APRN Ot M47.812 SPONDYLOSIS W/O MYELOPATHY OR RADICULOPA 02/09/2017 AUTUMN FIELDS APRN Ot M48.02 SPINAL STENOSIS, CERVICAL REGION 02/22/2017 BAN DAILEY Ot G89.29 OTHER CHRONIC PAIN 02/22/2017 BAN DAILEY Ot M54.2 CERVICALGIA 02/22/2017 BAN DAILEY Ot M54.5 LOW BACK PAIN 02/22/2017 AUTUMN FIELDS APRN Ot M47.812 SPONDYLOSIS W/O MYELOPATHY OR RADICULOPA 02/22/2017 AUTUMN FIELDS APRN Ot M48.02 SPINAL STENOSIS, CERVICAL REGION 06/02/2017 KUN SADLER MD Ot F17.210 NICOTINE DEPENDENCE, CIGARETTES, UNCOMPL 06/02/2017 KUN SADLER MD Ot M25.571 PAIN IN RIGHT ANKLE AND JOINTS OF RIGHT 06/02/2017 KUN SADLER MD Ot S96.912A STRAIN OF UNSP MSL/TND AT ANK/FT LEVEL, 06/02/2017 KUN SADLER MD Ot X50.0XXA OVEREXERTION FROM STRENUOUS MOVEMENT OR 06/02/2017 KUN SADLER MD Ot Y92.[address] 06/02/2017 KUN SADLER MD Ot Z86.010 PERSONAL HISTORY OF COLONIC POLYPS 06/02/2017 KUN SADLER MD Ot Z87.440 PERSONAL HISTORY OF URINARY (TRACT) INFE 06/02/2017 VIKTORIYA DAO, KUN Haq Ot Z98.51 TUBAL LIGATION STATUS 06/02/2017 TANIA DANIELS MD Ot 721.3 LUMBOSACRAL SPONDYLOSIS 06/02/2017 TANIA DANIELS MD Ot 723.0 CERVICAL SPINAL STENOSIS 06/02/2017 TANIA DANIELS MD Ot 729.5 PAIN IN LIMB 06/02/2017 TANIA DANIELS MD Ot 729.5 PAIN IN LIMB 06/02/2017 TANIA DANIELS MD Ot M54.5 LOW BACK PAIN 06/02/2017 TANIA DANIELS MD Ot R10.13 EPIGASTRIC PAIN 06/02/2017 AUTUMN FIELDS APRN Ot M47.812 SPONDYLOSIS W/O MYELOPATHY OR RADICULOPA 06/02/2017 AUTUMN FIELDS APRN Ot M48.02 SPINAL STENOSIS, CERVICAL REGION Procedures There is no data. Results Test Result Range Streptococcus pyogenes antigen detection - 04/26/16 05:30 Streptococcus pyogenes antigen detection NEGATIVE NEGATIVE Bacterial throat culture - 04/26/16 05:30 Bacterial throat culture [id number] NRG FREE TEXT EXTERNAL PLUS NORMAL NUPUR NRG QUANTITY OF GROWTH Moderate Growth NRG Complete urinalysis with reflex to culture - 06/06/16 18:23 Urine color determination YELLOW NRG Urine clarity determination SLIGHTLY CLOUDY NRG Urine pH measurement by test strip 6 5-9 Specific gravity of urine by test strip 1.005 1.016- 1.022 Urine protein assay by test strip, semi-quantitative NEGATIVE NEGATIVE Urine glucose detection by automated test strip NEGATIVE NEGATIVE Erythrocytes detection in urine sediment by light microscopy 5+ NEGATIVE Urine ketones detection by automated test strip NEGATIVE NEGATIVE Urine nitrite detection by test strip NEGATIVE NEGATIVE Urine total bilirubin detection by test strip NEGATIVE NEGATIVE Urine urobilinogen measurement by automated test strip (mass/volume) NORMAL NORMAL Urine leukocyte esterase detection by dipstick 1+ NEGATIVE Automated urine sediment erythrocyte count by microscopy (number/high power field) [HPF] NRG Automated urine sediment leukocyte count by microscopy (number/high power field ) [HPF] NRG Bacteria detection in urine sediment by light microscopy FEW NRG Squamous epithelial cells detection in urine sediment by light microscopy >50 NRG Crystals detection in urine sediment by light microscopy NONE NRG Casts detection in urine sediment by light microscopy NONE NRG Mucus detection in urine sediment by light microscopy NEGATIVE NRG Complete urinalysis with reflex to culture YES NRG Urine drug screening test - 06/06/16 18:23 Urine phencyclidine detection by screening method NEGATIVE NEGATIVE Urine benzodiazepines detection by screening method NEGATIVE NEGATIVE Urine cocaine detection NEGATIVE NEGATIVE Urine amphetamines detection by screening method NEGATIVE NEGATIVE Urine methamphetamine detection by screening method NEGATIVE NEGATIVE Urine cannabinoids detection by screening method NEGATIVE NEGATIVE Urine opiates detection by screening method NEGATIVE NEGATIVE Urine barbiturates detection NEGATIVE NEGATIVE Screening urine tricyclic antidepressants detection NEGATIVE NEGATIVE Urine methadone detection by screening method NEGATIVE NEGATIVE Urine oxycodone detection NEGATIVE NEGATIVE Urine propoxyphene detection NEGATIVE NEGATIVE Urine buprenophrine screen NEGATIVE NEGATIVE Bacterial urine culture - 06/06/16 18:23 URINE CULTURE RESULTS <10,000/ML NRG Complete urinalysis with reflex to culture - 01/21/17 22:33 Urine color determination YELLOW NRG Urine clarity determination CLEAR NRG Urine pH measurement by test strip 7 5-9 Specific gravity of urine by test strip 1.010 1.016- 1.022 Urine protein assay by test strip, semi-quantitative NEGATIVE NEGATIVE Urine glucose detection by automated test strip NEGATIVE NEGATIVE Erythrocytes detection in urine sediment by light microscopy NEGATIVE NEGATIVE Urine ketones detection by automated test strip NEGATIVE NEGATIVE Urine nitrite detection by test strip NEGATIVE NEGATIVE Urine total bilirubin detection by test strip NEGATIVE NEGATIVE Urine urobilinogen measurement by automated test strip (mass/volume) NORMAL NORMAL Urine leukocyte esterase detection by dipstick NEGATIVE NEGATIVE Automated urine sediment erythrocyte count by microscopy (number/high power field) NONE NRG Automated urine sediment leukocyte count by microscopy (number/high power field ) NONE NRG Bacteria detection in urine sediment by light microscopy TRACE NRG Squamous epithelial cells detection in urine sediment by light microscopy 5-10 NRG Crystals detection in urine sediment by light microscopy NONE NRG Casts detection in urine sediment by light microscopy NONE NRG Mucus detection in urine sediment by light microscopy NEGATIVE NRG Complete urinalysis with reflex to culture NO NRG Encounters ACCT No. Visit Date/Time Discharge Status Pt. Type Provider Facility Loc./Unit Complaint [id number] 06/02/2017 09:23:00 06/02/2017 10:40:00 DIS Emergency KUN SADLER MD [facility] ER L ANKLE POSS BREAK [id number] 03/09/2017 09:48:00 03/09/2017 23:59:59 CLS Preadmit AUTUMN FIELDS APRN [facility] RAD M54.42 LUMBAGO W/ SCIATICA [id number] 03/09/2017 09:41:00 03/09/2017 23:59:59 CLS Preadmit AUTUMN FIELDS COAT ROOM ATTENDANT [facility] RAD LUMBAGO W/SCIATICA [id number] 02/06/2017 13:58:00 02/06/2017 23:59:59 CLS Outpatient AUTUMN IFELDS COAT ROOM ATTENDANT [facility] RAD M54.2 CERVICALGIA [id number] 01/23/2017 12:48:00 01/23/2017 15:58:00 DIS Emergency SUNITHA AVILAP [facility] ER NECK PAIN [id number] 01/21/2017 22:21:00 01/22/2017 00:10:00 DIS Emergency BAN DAILEY [facility] ER NECK PAIN BACK PAIN [id number] 06/06/2016 17:35:00 06/06/2016 19:52:00 DIS Emergency KATHYA DODIMITRIS K [facility] ER BACK/R LEG PAIN [id number] 04/26/2016 05:05:00 04/26/2016 06:33:00 DIS Emergency PAIGE AGUIAR DO [facility] ER FEVER,NAUSEA,DIZZY,SORE THROAT [id number] 04/03/2016 14:11:00 04/03/2016 16:50:00 DIS Outpatient LUIS A DUFFY MD [facility] SDC UPPER GASTRIC PAIN, ABD PAIN [id number] 03/29/2016 05:52:00 03/29/2016 12:22:00 DIS Outpatient LUIS A DUFFY MD [facility] PREOP UPPER GASTRIC PAIN, ABD PAIN [id number] 02/16/2016 08:50:00 02/16/2016 23:59:59 CLS Outpatient TANIA DANIELS MD [facility] RAD EPIGASTRIC PAIN [id number] 11/12/2015 10:51:00 11/12/2015 23:59:59 CLS Outpatient TANIA DANIELS MD [facility] RAD LOW BACK PAIN [id number] 02/02/2015 09:20:00 02/02/2015 11:24:00 DIS Emergency KUN SADLER MD [facility] ER CHEST PAIN/PRESSURE LEFT ARM NUMBNESS [id number] 08/28/2014 11:39:00 08/28/2014 23:59:59 CLS Outpatient TANIA DANIELS MD [facility] RAD PAIN LEFT FOOT OSPERONEUS [id number] 08/24/2014 20:05:00 08/24/2014 22:28:00 DIS Emergency DIMITRIS RASHEED DO [facility] ER L FOOT PAIN [id number] 08/21/2014 11:15:00 08/21/2014 23:59:59 CLS Outpatient TANIA DANIELS MD [facility] RAD PAIN [id number] 07/16/2014 12:33:00 07/16/2014 23:59:59 CLS Outpatient TANIA DANIELS MD [facility] RAD LBP,RADIATING INTO RT LEG /FOOT, NECK PAIN,HEADACHE [id number] 04/13/2013 15:14:00 04/13/2013 19:01:00 DIS Emergency BAN DAILEY [facility] ER CHEST PAIN [id number] 08/21/2014 10:48:00 Document Registration [id number] 08/21/2014 10:48:00 Document Registration [id number] 11/07/2012 13:38:00 Document Registration [id number] 05/21/2012 19:31:00 Document Registration [id number] 05/19/2012 15:24:00 Document Registration [id number] 05/30/2011 13:05:00 Document Registration [id number] 02/14/2011 09:24:00 Document Registration [id number] 12/21/2010 12:09:00 Document Registration [id number] 04/01/2010 14:50:00 Document Registration [id number] 03/30/2009 13:32:00 Document Registration
--- OUTSIDE RECORDS SUMMARY | 2017-10-19 23:08 | XMS REPORT ---
Author Author FIELDS AUTUMN Organization [facility] Address [address] [place] [address] Care Team Providers Care Skiver Machine Operator Name Role Phone AUTUMN FIELDS Unavailable PROBLEMS Type Condition ICD9-CM Code [id number] Code Onset Dates Condition Status SNOMED Code Problem Cervicalgia M54.2 Active 72093114 Problem Lumbago with sciatica, left side M54.42 Active 143613796 Problem Pain in thoracic spine M54.6 Active [id number] ALLERGIES Substance Reaction Event Type Date Status Zofran anaphylaxis Drug Allergy January, Active Penicillin V Potassium hives Drug Allergy January, Active Fentanyl anaphylaxis Drug Allergy January, Active Dilaudid Unknown Drug Allergy January, Active SOCIAL HISTORY Never Assessed PLAN OF CARE Activity Details Follow Up 1 Months Reason:[facility] Height 64 in 2017-01-25 Weight 210 lbs 2017-01-25 Temperature 99.1 degrees Fahrenheit 2017-01-25 Heart Rate 90 bpm 2017-01-25 Respiratory Rate 20 2017-01-25 BMI 36.04 kg/m2 2017-01-25 Blood pressure systolic 110 mmHg 2017-01-25 Blood pressure diastolic 76 mmHg 2017-01-25 MEDICATIONS Medication Instructions Dosage Frequency Start Date End Date Duration Status Prednisone 20 mg Oral once daily 2 24h January, Active Tizanidine HCl 4 MG Orally Three times a day 1 tablet as needed 8h January, January, 10 days Active Oxycodone-Acetaminophen 7.5-325 MG Orally every 6 hrs 1 tablet as needed 6h January, January, 10 days Active RESULTS Name Result Date Reference Range MRI : Cervical w/o Contrast 2017-02-06 PROCEDURES No Known procedures IMMUNIZATIONS No Known [...]
[2017-10-20] MEDS ORDERED: PROMETHAZINE 25 MG (PHENERGAN) TAB PO ONE (02:00)
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
[2017-10-20] MEDS ORDERED: PRD20T PO (02:26)
[2017-10-20] MEDS ORDERED: PROM25TA14 PO (02:26)
[2017-10-20] MEDS ORDERED: predniSONE 20 MG TAB PO ONE (02:30)
[2017-10-20 02:35] VITALS: BP 0/0
== END 2017-10-20 02:35 | disposition home or self-care (01) ==
LOC: EDUNIT# 23:02 → ER 23:03
DX: M50.10 Cervical disc disorder with radiculopathy, unspecified cervical region (principal); F17.210 Nicotine dependence, cigarettes, uncomplicated; Z87.442 Personal history of urinary calculi; Z98.51 Tubal ligation status; Z79.52 Long term (current) use of systemic steroids; Z88.0 Allergy status to penicillin; Z88.6 Allergy status to analgesic agent; Z88.8 Allergy status to other drugs, medicaments and biological substances
CPT/HCPCS: 99281

== ENCOUNTER 2018-12-16 23:12 | Emergency (ER) | payer SELFPAY ==
[~2018-12-16] VITALS: Ht 162.6 cm; Wt 97.5 kg
[2018-12-17] MEDS ORDERED: LACTATED RINGERS 1,000 ML IV ONE (00:54)
[2018-12-17] MEDS ORDERED: PANTOPRAZOLE 40 MG (PROTONIX) VIAL IV ONE (01:00)
[2018-12-17 01:04] LABS: BASOPHILS # (AUTO) 0.1 10^3/uL (0.0-0.1); BASOPHILS % (AUTO) 0 % (0-10); EOSINOPHILS # (AUTO) 0.2 10^3/uL (0.0-0.3); EOSINOPHILS % (AUTO) 1 % (0-10); HEMATOCRIT 45 % (35-52); HEMOGLOBIN 15.2 G/DL (11.5-16.0); LYMPHOCYTES # (AUTO) 4.1 X 10^3 (1.0-4.0); LYMPHOCYTES % (AUTO) 25 % (12-44); MEAN CORPUSCULAR HEMOGLOBIN 32 PG (25-34); MEAN CORPUSCULAR HGB CONC 34 G/DL (32-36); MEAN CORPUSCULAR VOLUME 95 FL (80-99); MEAN PLATELET VOLUME 8.8 FL (7.4-10.4); MONOCYTES # (AUTO) 1.1 X 10^3 (0.0-1.0); MONOCYTES % (AUTO) 7 % (0-12); NEUTROPHILS # (AUTO) 10.7 X 10^3 (1.8-7.8); NEUTROPHILS % (AUTO) 66 % (42-75); PLATELET COUNT 388 10^3/uL (130-400); RED CELL DISTRIBUTION WIDTH 13.2 % (10.0-14.5); WHITE BLOOD COUNT 16.1 10^3/uL (4.3-11.0)
[2018-12-17 01:13] LABS: PROTHROMBIN TIME PATIENT 13.3 SEC (12.2-14.7)
[2018-12-17 01:22] LABS: ALBUMIN 4.1 GM/DL (3.2-4.5); ALKALINE PHOSPHATASE 60 U/L (40-136); BILIRUBIN,TOTAL 0.4 MG/DL (0.1-1.0); BUN/CREATININE RATIO 11; CALCIUM 9.2 MG/DL (8.5-10.1); CARBON DIOXIDE 17 MMOL/L (21-32); CHLORIDE 109 MMOL/L (98-107); CREATININE SERUM 0.84 MG/DL (0.60-1.30); GFR ESTIMATED > 60; GLUCOSE 82 MG/DL (70-105); POTASSIUM 3.9 MMOL/L (3.6-5.0); SODIUM 139 MMOL/L (135-145); TOTAL PROTEIN 7.6 GM/DL (6.4-8.2)
[2018-12-17 01:40] LABS: ALANINE AMINOTRANSFERASE 48 U/L (0-55); AMYLASE 49 U/L (25-125); CREATINE KINASE 61 U/L (29-168); LIPASE 50 U/L (8-78)
[2018-12-17 01:48] LABS: CREATINE KINASE MB 0.5 NG/ML (<6.6); LYMPHOCYTES % (MANUAL) 26 %; MONOCYTES % (MANUAL) 9 %; NEUTROPHILS % (MANUAL) 65 %
[2018-12-17 02:04] LABS: BILIRUBIN,URINE NEGATIVE (NEGATIVE); CLARITY,URINE CLEAR; COLOR,URINE YELLOW; GLUCOSE, URINE (UA) NEGATIVE (NEGATIVE); KETONES,URINE NEGATIVE (NEGATIVE); LEUKOCYTE ESTERASE ,URINE 1+ (NEGATIVE); NITRITE,URINE NEGATIVE (NEGATIVE); PH,URINE 6 (5-9); PROTEIN,URINE 2+ (NEGATIVE); UROBILINOGEN,URINE NORMAL (NORMAL)
[2018-12-17 02:23] LABS: BACTERIA,URINE MODERATE /HPF; HYALINE CASTS, URINE 0-2 /LPF; RBC,URINE 0-2 /HPF; WBC,URINE 0-2 /HPF
[2018-12-17] MEDS ORDERED: LEVO500T2 PO (03:39)
[2018-12-17] MEDS ORDERED: PROM25TA14 PO (03:39)
--- NOTE | 2018-12-17 03:39 | ED General ---
General Chief Complaint: Abdominal/GI Problems Stated Complaint: SOB Nursing Triage Note: Pt to ED in wheelchair. Pt normally ambulatory. Pt c/o vomiting and diarrhea, dizziness and SOB that began earlier this evening. Pt reports also being diaphoretic. Pt c/o dry cough. Pt reports bilateral kidney stones. Nursing Sepsis Screen: No Definite Risk Allergies and Home Medications Allergies Coded Allergies: Penicillins (Verified Allergy, Unknown, 03/01/07) hydromorphone HCl (Unverified Allergy, Unknown, 02/16/16) ondansetron HCl (Unverified Allergy, Unknown, 02/16/16) fentanyl (Unverified Adverse Reaction, Severe, anaphylaxis, 04/26/16) ibuprofen (Verified Adverse Reaction, Unknown, 06/06/16) can't take due to stomach problems Home Medications Cyclobenzaprine HCl 10 Mg Tablet, 10 MG PO Q8H Prescribed by: DIMITRIS RASHEED on 06/06/161944 Cyclobenzaprine HCl 10 Mg Tablet, 10 MG PO Q8H PRN for SPASMS Prescribed by: BAN THOMPSON on 01/21/172345 Nitrofurantoin Monohyd/M-Cryst 100 Mg Capsule, 100 MG PO BID Prescribed by: DIMITRIS RASHEED on 06/06/161944 Prednisone 10 Mg Tab, 40 MG PO DAILY Prescribed by: DIMITRIS RASHEED on 06/06/161944 Prednisone 20 Mg Tab, 40 MG PO DAILY Prescribed by: BAN THOMPSON on 01/21/172345 Prednisone 20 Mg Tab, 20 MG PO DAILY Prescribed by: ANDI BURNS on 10/20/17225 Promethazine HCl 25 Mg Tablet, 25 MG PO Q6H PRN for NAUSEA/VOMITING Prescribed by: ANDI BURNS on 10/20/17225 Tramadol HCl 50 Mg Tablet, 50 MG PO Q4H Prescribed by: DIMITRIS RASHEED on 06/06/161944 Tramadol HCl/Acetaminophen 1 Each Tablet, 1 EACH PO Q4H PRN for pain Prescribed by: BAN THOMPSON on 01/21/172345 Past Oyyxlvd-Heyjug-Reqggd Hx Patient Social History Alcohol Use: Occasionally Uses Recreational Drug Use: No Smoking Status: Current Everyday Smoker Type Used: Cigarettes 2nd Hand Smoke Exposure: Yes Recent Foreign Travel: No Contact w/Someone Who Travel: No Recent Infectious Disease Expo: No Recent Hopitalizations: No Physical Abuse: No Sexual Abuse: No Seasonal Allergies Seasonal Allergies: No Past Medical History Surgeries: Yes (BREAST , URETHRAL DILATION, RENAL BIOPSY; EGD/COLONOSCOPY- COLON POLYPECTOMY) Bladder Surgery, Breast, Gallbladder, Tubal Ligation Respiratory: No Cardiac: No Neurological: No Last Menstrual Period: Dec 09, 2018 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 0oz. 97.002246qe; 34.7 BMI Method:Stated Progress/Results/Core Measures Suspected Sepsis Recent Fever Within 48 Hours: No Infection Criteria Present: None New/Unexplained Altered Menta: No Sepsis Screen: No Definite Risk SIRS Temperature:99.8 Pulse: 77 Respiratory Rate: 15 Laboratory Tests 12/17/18 00:57: White Blood Count 16.1H Blood Pressure 118 /80 Mean: 93 Laboratory Tests 12/17/18 00:57: Creatinine 0.84, INR Comment 1.0, Platelet Count 388, Total Bilirubin 0.4 Results/Orders Lab Results Laboratory Tests Test 12/17/18 00:57 12/17/18 01:58 Range/Units White Blood Count 16.1 H 4.3-11.0 10^3/uL Red Blood Count 4.76 4.35-5.85 10^6/uL Hemoglobin 15.2 11.5-16.0 G/DL Hematocrit 45 35-52 % Mean Corpuscular Volume 95 80-99 FL Mean Corpuscular Hemoglobin 32 25-34 PG Mean Corpuscular Hemoglobin Concent 34 32-36 G/DL Red Cell Distribution Width 13.2 10.0-14.5 % Platelet Count 388 130-400 10^3/uL Mean Platelet Volume 8.8 7.4-10.4 FL Neutrophils (%) (Auto) 66 42-75 % Lymphocytes (%) (Auto) 25 12-44 % Monocytes (%) (Auto) 7 0-12 % Eosinophils (%) (Auto) 1 0-10 % Basophils (%) (Auto) 0 0-10 % Neutrophils # (Auto) 10.7 H 1.8-7.8 X 10^3 Lymphocytes # (Auto) 4.1 H 1.0-4.0 X 10^3 Monocytes # (Auto) 1.1 H 0.0-1.0 X 10^3 Eosinophils # (Auto) 0.2 0.0-0.3 10^3/uL Basophils # (Auto) 0.1 0.0-0.1 10^3/uL Neutrophils % (Manual) 65 % Lymphocytes % (Manual) 26 % Monocytes % (Manual) 9 % Prothrombin Time 13.3 12.2-14.7 SEC INR Comment 1.0 0.8-1.4 Activated Partial Thromboplast Time 26 24-35 SEC Sodium Level 139 135-145 MMOL/L Potassium Level 3.9 3.6-5.0 MMOL/L Chloride Level 109 H 98-107 MMOL/L Carbon Dioxide Level 17 L 21-32 MMOL/L Anion Gap 13 5-14 MMOL/L Blood Urea Nitrogen 9 7-18 MG/DL Creatinine 0.84 0.60-1.30 MG/DL Estimat Glomerular Filtration Rate > 60 BUN/Creatinine Ratio 11 Glucose Level 82 70-105 MG/DL Calcium Level 9.2 8.5-10.1 MG/DL Corrected Calcium 9.1 8.5-10.1 MG/DL Magnesium Level 3.0 H 1.8-2.4 MG/DL Total Bilirubin 0.4 0.1-1.0 MG/DL Aspartate Amino Transf (AST/SGOT) 37 H 5-34 U/L Alanine Aminotransferase (ALT/SGPT) 48 0-55 U/L Alkaline Phosphatase 60 40-136 U/L Total Creatine Kinase 61 29-168 U/L Creatine Kinase MB 0.5 <6.6 NG/ML Troponin I < 0.028 <0.028 NG/ML B-Type Natriuretic Peptide 11.4 <100.0 PG/ML Total Protein 7.6 6.4-8.2 GM/DL Albumin 4.1 3.2-4.5 GM/DL Amylase Level 49 25-125 U/L Lipase 50 8-78 U/L Serum Test, Qualitative NEGATIVE NEGATIVE Urine Color YELLOW Urine Clarity CLEAR Urine pH 6 5-9 Urine Specific [place] 1.015 L 1.016-1.022 Urine Protein 2+ H NEGATIVE Urine Glucose (UA) NEGATIVE NEGATIVE Urine Ketones NEGATIVE NEGATIVE Urine Nitrite NEGATIVE NEGATIVE Urine Bilirubin NEGATIVE NEGATIVE Urine Urobilinogen NORMAL NORMAL MG/DL Urine Leukocyte Esterase 1+ H NEGATIVE Urine RBC (Auto) 2+ H NEGATIVE Urine RBC 0-2 /HPF Urine WBC 0-2 /HPF Urine Squamous Epithelial Cells 2-5 /HPF Urine Crystals NONE /LPF Urine Bacteria MODERATE H /HPF Urine Casts PRESENT /LPF Urine Hyaline Casts 0-2 H /LPF Urine Mucus SMALL H /LPF Urine Culture Indicated NO My Orders Orders - DIMITRIS RASHEED DO Saline Lock/Iv-Start (12/17/18 00:54) Lactated Ringers (Lr 1000 Ml Iv Solution (12/17/18 00:54) Monitor-Rhythm Ecg Trace Only (12/17/18 00:54) Amylase (12/17/18 00:54) BNP (12/17/18 00:54) Cbc With Automated Diff (12/17/18 00:54) Comprehensive Metabolic Panel (12/17/18 00:54) Creatine Kinase (12/17/18 00:54) Creatine Kinase Mb (12/17/18 00:54) Hcg,Qualitative Serum (12/17/18 00:54) Lipase (12/17/18 00:54) Magnesium (12/17/18 00:54) Protime With Inr (12/17/18 00:54) Partial Thromboplastin Time (12/17/18 00:54) Troponin I (12/17/18 00:54) Ua Culture If Indicated (12/17/18 00:54) Pantoprazole Injection (Protonix Injecti (12/17/18 01:00) Manual Differential (12/17/18 00:57) Abdomen, Flat & Upright/Decub (12/17/18 01:58) Ct Abd/Pelvis Wo(Kidney Stone) (12/17/18 01:58) Rocephin 1g/Ns Iv (12/17/18 03:45) Medications Given in ED Current Medications Medications Dose Ordered Sig/Izabel Route Start Time Stop Time Status Last Admin Dose Admin Lactated Ringer's 1,000 ml @ 0 mls/hr Q0M ONCE IV 12/17/18 00:54 12/17/18 00:58 DC 12/17/18 01:28 1,000 MLS/HR Pantoprazole 40 mg ONCE ONCE IV 12/17/18 01:00 12/17/18 01:01 DC 12/17/18 01:28 40 MG Vital Signs/I&O 12/16/18 23:39 Temp 99.8 Pulse 77 Resp 15 B/P (MAP) 118/80 (93) Pulse Ox 99 O2 Delivery Room Air Capillary Refill : Less Than 3 Seconds Blood Pressure Mean: 93 Departure Impression Primary Impression: UTI (urinary tract infection) Additional Impression: Gastroenteritis Disposition: HOME, SELF-CARE Condition: Improved Departure-Patient Inst. Referrals: [facility] (PCP/Family) Primary Care Physician Patient Instructions: Urinary Tract Infection, Adult (DC), Viral Gastroenteritis, Adult (DC) Add. Discharge Instructions: LOTS OF CLEAR LIQUIDS--WATER, BROTH, JELLO, GATORADE BRATS DIET--BANANAS, RICE, APPLESAUCE, TOAST, SALTINES FOLLOW UP WITH YOUR DR IN 2-3 DAYS FOR FURTHER CARE All discharge instructions reviewed with patient and/or family. Voiced understanding. Scripts Promethazine HCl (Promethazine Tablet) 25 Mg Tablet 25 MG PO Q6H PRN for NAUSEA/VOMITING, #10 TAB Prov: DIMITRIS RASHEED DO 12/17/18 Levofloxacin (Levaquin) 500 Mg Tablet 500 MG PO DAILY for INFECTION, #10 TAB Prov: IDMITRIS RASHEED DO 12/17/18 DIMITRIS RASHEED DO Dec 17, 2018 03:39
[2018-12-17] MEDS ORDERED: cefTRIAXone FOR IV USE 1,000 MG in WATER (STERILE) FOR INJECTION 10 ML IV ONE (03:45)
[2018-12-17 04:35] VITALS: BP 132/95
--- NOTE | 2018-12-17 06:48 | Diagnostic Imaging Report ---
PROCEDURE: CT urinary tract, rule out kidney stone. TECHNIQUE: Multiple contiguous axial images were obtained through the abdomen and pelvis without the use of intravenous contrast. Auto Exposure Controls were utilized during the CT exam to meet ALARA standards for radiation dose reduction. INDICATION: Abdominal pain. No prior examinations are available for comparison. FINDINGS: The heart size is normal. Lung bases are clear. There is mild fatty infiltration of the liver. Gallbladder surgically absent. There is no biliary duct dilatation. Spleen is normal. The pancreas and adrenal glands are unremarkable. There are two 3 mm nonobstructing stones in the right kidney. The abdominal aorta is nonaneurysmal. The bowel gas pattern is nonspecific. Appendix is normal. There is no free air. There is no ascites. There are no focal inflammatory changes. Bladder is normal. There is no pelvic mass, adenopathy or free fluid. There are degenerative changes in the spine. IMPRESSION: Two small nonobstructing right renal stones. Fatty infiltration of the liver. No other acute abnormality in the abdomen or pelvis. Dictated by: Dictated on workstation # [id number]
--- NOTE | 2018-12-17 08:26 | Diagnostic Imaging Report ---
INDICATION: Abdominal pain with nausea and vomiting. FINDINGS: The lung bases are clear. Bowel gas pattern is nonspecific. There is no free air. There are surgical clips in right upper quadrant. IMPRESSION: Nonspecific bowel gas pattern. Dictated by: Dictated on workstation # [id number]
== END 2018-12-17 04:35 | disposition home or self-care (01) ==
LOC: EDUNIT# 23:12 → ER 23:14
DX: N39.0 Urinary tract infection, site not specified (principal); K52.9 Noninfective gastroenteritis and colitis, unspecified; F17.210 Nicotine dependence, cigarettes, uncomplicated; Z98.51 Tubal ligation status; Z98.890 Other specified postprocedural states; Z87.442 Personal history of urinary calculi; Z86.010 Personal history of colon polyps; Z88.0 Allergy status to penicillin; Z88.5 Allergy status to narcotic agent; Z88.8 Allergy status to other drugs, medicaments and biological substances; Z88.6 Allergy status to analgesic agent; Z79.52 Long term (current) use of systemic steroids
CPT/HCPCS: 36415; 74019; 74176; 80053; 81000; 82150; 82550; 82553; 83690; 83735; 83880; 84484; 84703; 85007; 85027; 85610; 85730; 93041; 96361; 96374; 96375

== ENCOUNTER 2019-04-22 16:45 | Emergency (ER) | payer SELFPAY ==
[~2019-04-22] VITALS: Ht 162.6 cm; Wt 95.3 kg
[~2019-04-22 16:45] MED LIST changes: +LEVO500T2 PO
[2019-04-22] MEDS ORDERED: ORPHENADRINE 60 MG/2 ML (NORFLEX) AMP IM ONE (17:30)
[2019-04-22] MEDS ORDERED: KETOROLAC 60 MG/2 ML VIAL IM ONE (17:30)
[2019-04-22] MEDS ORDERED: ACHD5005 PO (18:23)
[2019-04-22] MEDS ORDERED: CYCL10TA9 PO (18:23)
[2019-04-22] MEDS ORDERED: PRD20T PO (18:23)
--- NOTE | 2019-04-22 18:23 | ED Back Pain ---
General Chief Complaint: Back Problems Stated Complaint: LOWER BACK PAIN Nursing Triage Note: Patient ambulatory to ER with complaint of lower back pain that began yesterday after getting off work. Patient denies any recent injuries. Patient complains of numbness and tingling to bilateral legs. She denies any incontinence to urine or bowel. Nursing Sepsis Screen: No Definite Risk Source of Information: Patient Exam Limitations: No Limitations History of Present Illness Date Seen by Provider: Apr 22, 2019 Time Seen by Provider: 17:20 Initial Comments 38-year-old female who presents to the emergency room with complaints of chronic low back pain that exacerbated yesterday after getting off work. She denies any recent injuries. She does have some tingling to upper outer thigh area but she denies loss of bowel or bladder or numbness and tingling to her genital area or saddle paresthesia. Location: Lumbar Spine Timing/Duration: 2-3 Days Pain/Injury Location: Back Radiation: Upper Legs Associated Symptoms: tingling in legs/feet Allergies and Home Medications Allergies Coded Allergies: Penicillins (Verified Allergy, Unknown, 03/01/07) hydromorphone HCl (Unverified Allergy, Unknown, 02/16/16) ondansetron HCl (Unverified Allergy, Unknown, 02/16/16) fentanyl (Unverified Adverse Reaction, Severe, anaphylaxis, 04/26/16) ibuprofen (Verified Adverse Reaction, Unknown, 06/06/16) can't take due to stomach problems Home Medications Cyclobenzaprine HCl 10 Mg Tablet, 10 MG PO Q8H Prescribed by: DIMITRIS RASHEED on 06/06/16 194 Cyclobenzaprine HCl 10 Mg Tablet, 10 MG PO Q8H PRN for SPASMS Prescribed by: BAN THOMPSON on 01/21/17 2346 Cyclobenzaprine HCl 10 Mg Tablet, 10 MG PO Q8H PRN for SPASMS Prescribed by: KATHY CHRISTINA on 04/22/191822 Hydrocodone Bit/Acetaminophen 1 Tab Tab, 1 EACH PO Q4-6HR PRN for PAIN-MODERATE Prescribed by: KATHY CHRISTINA on 04/22/191822 Levofloxacin 500 Mg Tablet, 500 MG PO DAILY Prescribed by: DIMITRIS RASHEED on 12/17/18 0339 Nitrofurantoin Monohyd/M-Cryst 100 Mg Capsule, 100 MG PO BID Prescribed by: DIMITRIS RASHEED on 06/06/161944 Prednisone 10 Mg Tab, 40 MG PO DAILY Prescribed by: DIMITRIS RASHEED on 06/06/161944 Prednisone 20 Mg Tab, 40 MG PO DAILY Prescribed by: BAN THOMPSON on 01/21/172345 Prednisone 20 Mg Tab, 20 MG PO DAILY Prescribed by: ANDI BURNS on 10/20/17225 Prednisone 20 Mg Tab, 40 MG PO DAILY Prescribed by: KATHY CHRISTINA on 04/22/19 182 Promethazine HCl 25 Mg Tablet, 25 MG PO Q6H PRN for NAUSEA/VOMITING Prescribed by: ANDI BURNS on 10/20/17 022 Promethazine HCl 25 Mg Tablet, 25 MG PO Q6H PRN for NAUSEA/VOMITING Prescribed by: DIMITRIS RASHEED on 12/17/18 033 Tramadol HCl 50 Mg Tablet, 50 MG PO Q4H Prescribed by: DIMITRIS RASHEED on 06/06/161944 Tramadol HCl/Acetaminophen 1 Each Tablet, 1 EACH PO Q4H PRN for pain Prescribed by: BAN THOMPSON on 01/21/172345 Patient Home Medication List Home Medication List Reviewed: Yes Review of Systems Constitutional: see HPI; No chills, No fever Musculoskeletal: see HPI, back pain All Other Systems Reviewed Negative Unless Noted: Yes Past Vfbgiif-Uutmyc-Xjbdxj Hx Past Med/Social Hx: Reviewed Nursing Past Med/Soc Hx Patient Social History Alcohol Use: Occasionally Uses Recreational Drug Use: No Smoking Status: Current Everyday Smoker Type Used: Cigarettes 2nd Hand Smoke Exposure: Yes Recent Foreign Travel: No Contact w/Someone Who Travel: No Recent Infectious Disease Expo: No Recent Hopitalizations: No Immunizations Up To Date PED Vaccines UTD: Yes Seasonal Allergies Seasonal Allergies: No Past Medical History Surgeries: Yes (BREAST , URETHRAL DILATION, RENAL BIOPSY; EGD/COLONOSCOPY-COLON POLYPECTOMY) Bladder Surgery, Breast, Gallbladder, Tubal Ligation Respiratory: No Cardiac: No Neurological: No 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 0oz. 95.886199zw; 34.7 BMI Method:Stated General Appearance: No Apparent Distress, WD/WN Cardiovascular: Regular Rate, Rhythm, No Edema, No Gallop, No JVD, No Murmur, Normal Peripheral Pulses Respiratory: Chest Non Tender, Lungs Clear, Normal Breath Sounds, No Accessory Muscle Use, No Respiratory Distress, Accessory Muscle Use Gastrointestinal: Normal Bowel Sounds, No Organomegaly, No Pulsatile Mass, Non Tender, Soft Back: Normal Inspection, Vertebral Tenderness (lumbar vertebral tenderness) Extremity: Normal Capillary Refill, Normal Inspection, Normal Range of Motion, Non Tender, No Calf Tenderness, No Pedal Edema Neurologic/Psychiatric: Alert, Oriented x3, Normal Mood/Affect Skin: Normal Color, Warm/Dry Progress/Results/Core Measures Results/Orders My Orders Orders - KATHY CHRISTINA Ketorolac Injection (Toradol Injection) (04/22/19 17:30) Orphenadrine Injection (Norflex Injectio (04/22/19 17:30) Medications Given in ED Vital Signs/I&O 04/22/19 04/22/19 17:00 18:26 Temp 98.3 98.3 Pulse 79 79 Resp 20 20 B/P (MAP) 127/90 (102) 127/90 (102) Pulse Ox 97 97 O2 Delivery Room Air Blood Pressure Mean: 102 Progress Progress Note : Time: 17:20 Progress Note I have seen and evaluated the patient. She reports mild improvement of her pain after shot administration. She wishes to go home at this time and laid down. She agrees with plan of care, plans for follow-up, return precautions were given. Departure Impression Primary Impression: Chronic back pain Disposition: 01 HOME, SELF-CARE Condition: Stable/Unchanged Departure-Patient Inst. Decision time for Depature: 18:21 Referrals: NO,LOCAL PHYSICIAN (PCP/Family) Primary Care Physician Patient Instructions: Low Back Pain (DC) Add. Discharge Instructions: Follow-up with your primary care provider within 1 week for a recheck. Call tomorrow morning for an appointment time. You may use Tylenol as directed by the bottle for pain relief. Return back to the emergency room for worsening symp toms or concerns as needed. Take medications as directed. Do not exceed your daily limit of Tylenol 4000 mg. All Discharge instructions reviewed with patient and/or family. Voiced understanding. Scripts Prednisone (Prednisone) 20 Mg Tab 40 MG PO DAILY for 5 Days, #10 TAB 0 Refills Prov: KATHY CHRISTINA 04/22/19 Hydrocodone Bit/Acetaminophen (Hydrocodone/Acetaminophen 5/325mg Tablet) 1 Tab Tab 1 EACH PO Q4-6HR PRN for PAIN-MODERATE MDD 10 for 3 Days, #10 TAB Prov: KATHY CHRISTINA 04/22/19 Cyclobenzaprine HCl (Cyclobenzaprine HCl) 10 Mg Tablet 10 MG PO Q8H PRN for SPASMS, #15 TAB 0 Refills Prov: KATHY CHRISTINA 04/22/19 KATHY CHRISTINA Apr 22, 2019 18:23
--- NOTE | 2019-04-22 18:25 | NUR ---
Patient states medication only slightly helped. She is wanting discharged so she can go home and lay down in bed.
[2019-04-22 18:26] VITALS: BP 127/90
== END 2019-04-22 18:27 | disposition home or self-care (01) ==
LOC: EDUNIT# 16:45 → ER 16:46
DX: G89.29 Other chronic pain (principal); M54.5 Low back pain; F17.210 Nicotine dependence, cigarettes, uncomplicated; M79.7 Fibromyalgia; Z88.0 Allergy status to penicillin; Z88.5 Allergy status to narcotic agent; Z88.6 Allergy status to analgesic agent; Z88.8 Allergy status to other drugs, medicaments and biological substances; Z79.52 Long term (current) use of systemic steroids; Z98.51 Tubal ligation status; Z87.442 Personal history of urinary calculi
CPT/HCPCS: 96372; 99284

== ENCOUNTER 2021-01-12 12:48 | Emergency (ER) | payer SELFPAY ==
[~2021-01-12] VITALS: Ht 162.5 cm; Wt 100.0 kg
[~2021-01-12 12:48] MED LIST changes: -TRAM50TA2 PO
[2021-01-12] MEDS ORDERED: morphine INJ 10 MG/ML 1ML (SYR OR VIAL) IVP STA (13:19)
[2021-01-12] MEDS ORDERED: ORPHENADRINE 60 MG/2 ML (NORFLEX) AMP (ED ONLY) IM ONE (13:30)
[2021-01-12] MEDS ORDERED: PROMETHAZINE 25 MG (PHENERGAN) TAB PO ONE (13:30)
--- NOTE | 2021-01-12 13:38 | ED Back Pain ---
General Chief Complaint: Back Problems Stated Complaint: BACK PAIN Nursing Triage Note: AMB TO ROOM WITH C/O CHRONIC LOW BACK PAIN THAT HAS GOTTEN WORSE LAST SEVERAL WEEKS. HAS BEEN TAKNG IBUPROFEN Nursing Sepsis Screen: No Definite Risk Source of Information: Patient Exam Limitations: No Limitations (NIRALI RODRIGUEZ MED STUDENT) History of Present Illness Date Seen by Provider: Jan 12, 2021 Time Seen by Provider: 13:31 Initial Comments Patient is a 40-year-old female who presents to the emergency department with the chief complaint of back pain. Patient has history of chronic back pain for years, but has become more consistent in last few months. She presents today with back pain worsening for the last 4 days She states that 4 days ago, she stood up from the dinner table and developed sudden pain in her low back and tailbone region. She works in [employer], and states she tried to go to work today but her symptoms have gotten so severe that she "almost passed out from the pain." She states she also began to have radiation of pain bilaterally across her buttocks and down her thighs. She has some nausea but no vomiting. She has been taking 400mg ibuprofen and 1000mg tylenol q4-6 hours, and one tablet of hydrocodone 5mg yesterday with no relief of her symptoms. She also has tried soaking with Epson salts and used heating/ice packs without relief. Her only relief is when laying down, while standing/walking/sitting for long periods exacerbates her symptoms. Denies urinary or stool incontinence, or inability to urinate/stool. Denies saddle anesthesia. Denies numbness/tingling. Denies recent strain or injury to the area. Denies history of back surgery. Denies fever, chills, recent illness, GI or symptoms. All review of systems reviewed and negative except stated above. Timing/Duration: 3-4 Days, Getting Worse Severity: Moderate Pain/Injury Location: Back (lumbar and sacral region) Radiation: Buttocks, Upper Legs Method of Injury: Unknown Modifying Factors: Worse With Movement Associated Symptoms: muscle spasms; No numbness in legs/feet, No tingling in legs/feet, No sensory/motor loss; lower back pain; No loss of bladder control, No loss of bowel control (NIRALI RODRIGUEZ MED STUDENT) Allergies and Home Medications Allergies Coded Allergies: Penicillins (Verified Allergy, Unknown, 03/01/07) hydromorphone HCl (Unverified Allergy, Unknown, 02/16/16) ondansetron HCl (Unverified Allergy, Unknown, 02/16/16) fentanyl (Unverified Adverse Reaction, Severe, anaphylaxis, 04/26/16) ibuprofen (Verified Adverse Reaction, Unknown, 06/06/16) can't take due to stomach problems Home Medications Cyclobenzaprine HCl 10 Mg Tablet, 10 MG PO Q8H Prescribed by: DIMITRIS RASHEED on 06/06/161944 Cyclobenzaprine HCl 10 Mg Tablet, 10 MG PO Q8H PRN for SPASMS Prescribed by: BAN THOMPSON on 01/21/172345 Cyclobenzaprine HCl 10 Mg Tablet, 10 MG PO Q8H PRN for SPASMS Prescribed by: KATHY CHRISTINA on 04/22/191822 Cyclobenzaprine HCl 10 Mg Tablet, 10 MG PO Q8H PRN for muscle spasm Prescribed by: MITCHELL TAN on 01/12/21 144 Hydrocodone Bit/Acetaminophen 1 Tab Tab, 1 EACH PO Q4-6HR PRN for PAIN-MODERATE Prescribed by: KATHY CHRISTINA on 04/22/191822 Levofloxacin 500 Mg Tablet, 500 MG PO DAILY Prescribed by: DIMITRIS RASHEED on 12/17/18 033 Methylprednisolone 4 Mg Tab.ds.pk, 4 MG PO UD PER DOSE PACK INSTRUCTIONS Prescribed by: MITCHELL TAN on 01/12/21 144 Nitrofurantoin Monohyd/M-Cryst 100 Mg Capsule, 100 MG PO BID Prescribed by: DIMITRIS RASHEED on 06/06/161944 Oxycodone HCl/Acetaminophen 1 Each Tablet, 1 TAB PO Q6H Prescribed by: MITCHELL TAN on 01/12/21 144 Prednisone 10 Mg Tab, 40 MG PO DAILY Prescribed by: DIMITRIS RASHEED on 06/06/161944 Prednisone 20 Mg Tab, 40 MG PO DAILY Prescribed by: BAN THOMPSON on 01/21/17 234 Prednisone 20 Mg Tab, 20 MG PO DAILY Prescribed by: ANDI BURNS on 10/20/17 0226 Prednisone 20 Mg Tab, 40 MG PO DAILY Prescribed by: KATHY CHRISTINA on 04/22/191822 Promethazine HCl 25 Mg Tablet, 25 MG PO Q6H PRN for NAUSEA/VOMITING Prescribed by: ANDI BURNS on 10/20/17 0226 Promethazine HCl 25 Mg Tablet, 25 MG PO Q6H PRN for NAUSEA/VOMITING Prescribed by: DIMITRIS RASHEED on 12/17/18 0339 Tramadol HCl 50 Mg Tablet, 50 MG PO Q4H Prescribed by: DIMITRIS RASHEED on 06/06/16 194 Tramadol HCl/Acetaminophen 1 Each Tablet, 1 EACH PO Q4H PRN for pain Prescribed by: BAN THOMPSON on 01/21/17 2346 Patient Home Medication List Home Medication List Reviewed: Yes (MITCHELL TAN MD) Review of Systems Constitutional: no symptoms reported; No chills, No fever EENTM: no symptoms reported Respiratory: no symptoms reported Cardiovascular: no symptoms reported Gastrointestinal: no symptoms reported Genitourinary: no symptoms reported : No Musculoskeletal: see HPI, back pain, muscle cramps Skin: no symptoms reported Psychiatric/Neurological: No Symptoms Reported (NIRALI RODRIGUEZ STUDENT) All Other Systems Reviewed Negative Unless Noted: Yes (NIRALI RODRIGUEZ STUDENT) Past Cnkbfng-Xfqwhh-Ysokkx Hx Patient Social History Alcohol Use: Occasionally Uses Smoking Status: Current Everyday Smoker Type Used: Cigarettes 2nd Hand Smoke Exposure: Yes Recent Infectious Disease Expo: No Recent Hopitalizations: No (NIRALI RODRIGUEZ STUDENT) Immunizations Up To Date PED Vaccines UTD: Yes (NIRALI RODRIGUEZ STUDENT) Seasonal Allergies Seasonal Allergies: No (NIRALI RODRIGUEZ STUDENT) Past Medical History Surgeries: Yes (BREAST , URETHRAL DILATION, RENAL BIOPSY; EGD/COLONOSCOPY-COLON POLYPECTOMY) Bladder Surgery, Breast, Gallbladder, Tubal Ligation Respiratory: No Cardiac: No Neurological: No 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 Genitourinary: Yes Kidney Stones Gastrointestinal: Yes (EGD/COLONOSCOPY) Polyps Musculoskeletal: Yes (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 0oz. 95.219226gm; 37.00 BMI Method:Stated General Appearance: WD/WN, Mild Distress (secondary to pain, alternated between sitting and standing during exam) Cardiovascular: Regular Rate, Rhythm, No Gallop, No Murmur, Normal Peripheral Pulses Respiratory: Lungs Clear, Normal Breath Sounds, No Accessory Muscle Use, No Respiratory Distress Gastrointestinal: No Organomegaly, No Pulsatile Mass, Non Tender, Soft Back: Normal Inspection, Vertebral Tenderness (moderate tenderness to light palpation in thoracic, lumbar spine) Extremity: Normal Capillary Refill, Normal Inspection, Normal Range of Motion, No Calf Tenderness, No Pedal Edema, Other (tenderness to palpation in gluteal region bilterally) Neurologic/Psychiatric: Alert, Oriented x3, No Motor/Sensory Deficits, Other (seated straight leg raise negative bilaterally (patient unable to lay supine se condary to pain), motor and sensation intact bilaterally) Skin: Normal Color, Warm/Dry (NIRALI RODRIGUEZ MED STUDENT) Progress/Results/Core Measures Results/Orders My Orders Orders - MITCHELL TAN MD Morphine Injection (Morphine Injection (01/12/21 13:19) Orphenadrine Inj (Ed Only) (Norflex Inje (01/12/21 13:30) Promethazine Tablet (Phenergan Tablet) (01/12/21 13:30) Morphine Injection (Morphine Injection (01/12/21 14:30) Dexamethasone Tablet (Decadron Tablet) (01/12/21 14:45) (MITCHELL TAN MD) Medications Given in ED (MITCHELL TAN MD) Vital Signs/I&O 01/12/21 01/12/21 12:52 16:11 Temp 36.3 Pulse 86 54 Resp 18 18 B/P (MAP) 143/89 (107) 122/84 Pulse Ox 95 98 O2 Delivery Room Air (MITCHELL TAN MD) Blood Pressure Mean: 107 Progress Progress Note : Time: 14:00 Progress Note Reassessed patient - she states that she did not achieve any degree of relief from the pain medications initially given. will re-dose the morphine at 10mg to see if she gets some relief. She does not have any acute neurologic dysfunction. no saddle anesthesia, no demonstrable leg weakness, negative straight leg raise (seated); no sensory dysfunction. patient exam is only limited by the pain she is experiencing - her over all strength is good just limited in effort due to pain. 1528 Looks more comfortable after second dose of medications. Still has some degree of pain. recommended supportive care. follow up with PCP (MITCHELL TAN MD) Departure Impression Primary Impression: Exacerbation of chronic back pain Disposition: HOME, SELF-CARE Condition: Stable Departure-Patient Inst. Referrals: [facility] [place],LOCAL PHYSICIAN (PCP) Primary Care Physician Patient Instructions: Low Back Pain (DC) Add. Discharge Instructions: Use a heating pad to the sore areas of your back; 20minutes at a time every 3-4 hours. There are also over the counter pain patches you can buy, lidocaine patches, that you can place over the sore areas of your back that will help alleviate muscle pain. I have written you for a steroid pack, to decrease inflammation and swelling, a pain pill and a muscle relaxer. Please use care taking the pain pills a muscle relaxers. do not drive and take these medications. Please follow up with [facility] for further evaluation and management of your back pain. Return to the Emergency Department for any worsening pain, numbness or weakness, loss of bowel or bladder function or any other emergent concerning symptoms. Scripts Methylprednisolone (Methylprednisolone Dose Pack) 4 Mg Tab.ds.pk 4 MG PO UD for 6 Days, #21 PKG PER DOSE PACK INSTRUCTIONS Prov: MITCHELL TAN MD 01/12/21 Oxycodone HCl/Acetaminophen (Percocet 5-325 mg Tablet) 1 Each Tablet 1 TAB PO Q6H for PAIN-MODERATE MDD 6 TABS for 5 Days, #20 TAB Prov: MITCHELL TAN MD 01/12/21 Cyclobenzaprine HCl (Cyclobenzaprine HCl) 10 Mg Tablet 10 MG PO Q8H PRN for muscle spasm, #15 TAB Prov: MITCHELL TAN MD 01/12/21 I have seen and examined the patient. I have performed a history and physical examination, as well as the medical decision making regarding this patient. I have reviewed and agree with the medical student's documentation of assessment and plan of care. (MITCHELL TAN MD) NIRALI RODRIGUEZ MED STUDENT Jan 12, 2021 13:37 MITCHELL TAN MD Jan 12, 2021 13:54
[2021-01-12] MEDS ORDERED: morphine INJ 10 MG/ML 1ML (SYR OR VIAL) IM STA (14:30)
[2021-01-12] MEDS ORDERED: METH4TAB10 PO (14:46)
[2021-01-12] MEDS ORDERED: OXYC1TAB87 PO (14:46)
[2021-01-12] MEDS ORDERED: CYCL10TA9 PO (14:46)
[2021-01-12 16:11] VITALS: BP 122/84
== END 2021-01-12 15:39 | disposition home or self-care (01) ==
LOC: EDUNIT# 12:48 → ER 12:50
DX: G89.29 Other chronic pain (principal); M54.5 Low back pain; F17.210 Nicotine dependence, cigarettes, uncomplicated; Z88.0 Allergy status to penicillin; Z88.5 Allergy status to narcotic agent; Z88.6 Allergy status to analgesic agent; Z88.8 Allergy status to other drugs, medicaments and biological substances; Z79.52 Long term (current) use of systemic steroids; Z79.891 Long term (current) use of opiate analgesic
CPT/HCPCS: 99284